=== PATIENT | male | born 1960 | race Caucasian/White ===

== ENCOUNTER 2016-06-05 | Outpatient (CLI) | payer OTHER | END 2016-06-05 13:19 | disposition critical access hospital (66) | CPT/HCPCS: A0425; A0429 ==

== ENCOUNTER 2016-06-05 13:36 | Emergency (ER) | payer OTHER | END 2016-06-05 14:45 | disposition home or self-care (01) | DX: R42 Dizziness and giddiness (principal); F17.200 Nicotine dependence, unspecified, uncomplicated ==

== ENCOUNTER 2016-07-16 14:31 | Emergency (ER) | payer OTHER ==
--- NOTE | 2016-07-16 15:32 | ED Physician Documentation ---
PD HPI MALE - Stated complaint Stated Complaint: BACK PX - Chief complaint Chief Complaint: Back Pain - History obtained from History obtained from: Patient - History of Present Illness Timing - onset: How many weeks ago (1-2) Timing - duration: Weeks Timing - details: Gradual onset, Still present (worse today), Waxing and waning Associated symptoms: Abdominal pain, Back pain (right lateral lumbar level and to right lower abd/inguinal area.). No: Dysuria, Urinary frequency, Hematuria, Discharge, Genital sore / lesion, Scrotal swelling Similar symptoms before: Has not had sx before Recently seen: Not recently seen Review of Systems Ten Systems: 10 systems reviewed and negative Constitutional: denies: Fever, Chills Nose: denies: Rhinorrhea / runny nose, Congestion Throat: denies: Sore throat Respiratory: denies: Dyspnea, Cough GI: reports: Abdominal Pain. denies: Abdominal Swelling, Nausea, Diarrhea : denies: Dysuria, Frequency, Hematuria, Discharge Skin: denies: Rash, Lesions Neurologic: denies: Focal weakness, Numbness PD PAST MEDICAL HISTORY - Past Surgical History Past Surgical History: Yes HEENT: Tonsil/Adenoidectomy - Present Medications Home Medications: Ambulatory Orders Medication Instructions Recorded Confirmed Aspirin 1 - 2 tab QID PRN 06/05/16 06/05/16 Docusate Sodium 100 mg PO DAILY #30 capsule 07/16/16 Naproxen 375 mg PO BID #20 tablet 07/16/16 Tramadol HCl 50 mg PO Q6H PRN #30 tablet 07/16/16 - Allergies Allergies/Adverse Reactions: Allergies Allergy/AdvReac Type Severity Reaction Status Date / Time No Known Drug Allergies Allergy Verified 06/05/16 13:40 - Social History Does the pt smoke?: Yes Smoking Status: Current every day smoker Does the pt drink ETOH?: Yes PD ED PE NORMAL - Vitals Vital signs reviewed: Yes - General General: Alert and oriented X 3, Well developed/nourished - HEENT HEENT: PERRL (nonicteric), Ears normal, Pharynx benign - Neck Neck: Supple, no meningeal sign, No adenopathy - Cardiac Cardiac: RRR, No murmur - Respiratory Respiratory: Clear bilaterally - Abdomen Abdomen: Normal bowel sounds, Non distended, No organomegaly, Other (tender right side abdomen and laterally. No rash nor sores. skin is not sensitive to touch. there is soft tissue and deeper palpation tenderness lateral paralumbar/ lateral musculature on right. ) - Male Male : Other (no scrotal tenderness nor mass. No inguinal hernia noted. ) - Rectal Rectal: Deferred - Back Back: No CVA TTP Results - Vitals Vitals: Vital Signs - 24 hr 07/16/16 07/16/16 07/16/16 14:33 16:57 18:43 Temperature 37.1 C 36.7 C Heart Rate 75 58 L 74 Respiratory 18 14 12 Rate Blood Pressure 133/85 H 114/77 121/68 O2 Saturation 98 98 96 Oxygen O2 Source Room air - Labs Labs: Laboratory Tests 07/16/16 07/16/16 07/16/16 15:50 16:00 16:00 WBC 7.5 RBC 5.23 Hgb 17.0 Hct 49.6 MCV 94.9 H MCH 32.5 H MCHC 34.3 RDW 12.6 Plt Count 249 MPV 8.0 Neut # 4.2 Lymph # 2.5 [place] # 0.7 Eos # 0.1 Baso # 0.1 Absolute Nucleated RBC 0.01 Nucleated RBCs 0.1 Sodium 140 Potassium 4.2 Chloride 106 Carbon Dioxide 27 Anion Gap 7.0 BUN 14 Creatinine 0.7 Estimated GFR (MDRD) 118 Glucose 93 Calcium 9.3 Total Bilirubin 0.6 AST 18 ALT 26 Alkaline Phosphatase 57 Total Protein 7.2 Albumin 4.3 Globulin 2.9 Albumin/Globulin Ratio 1.5 Lipase 24 Urine Color LT. YELLOW Urine Clarity CLEAR Urine pH 7.0 Ur Specific [place] <=1.005 Urine Protein NEGATIVE Urine Glucose (UA) NEGATIVE Urine Ketones NEGATIVE Urine Occult Blood TRACE-LYSE Urine Nitrite NEGATIVE Urine Bilirubin NEGATIVE Urine Urobilinogen 0.2 (NORMAL) Ur Leukocyte Esterase NEGATIVE Ur Microscopic Review NOT INDICATED Urine Culture Comments NOT INDICATED - Rads (name of study) abd CT Radiology: Prelim report reviewed (no obvious cause for the pain. Nodules noted in lower lungs with recommendation for 3 month repeat imaging.) PD MEDICAL DECISION MAKING - ED course Complexity details: reviewed results, re-evaluated patient (he wants to have non -narcoitc approach to meds. ), considered differential (has positional coponent to pain, presuming might be musculoskeletal. Will get CT to evaluate for stones , divertic, abscess, etc. ), d/w patient Departure - Departure Disposition: 01 Home, Self Care Clinical Impression: Right lateral abdominal pain Condition: Stable Record reviewed to determine appropriate education?: Yes Instructions: ED Abdominal Pain Unkn Cause Prescriptions: Docusate Sodium 100 mg PO DAILY #30 capsule Naproxen 375 mg PO BID #20 tablet Tramadol HCl 50 mg PO Q6H PRN #30 tablet PRN Reason: Pain Comments: Drink lots of fluids. Daily stool softener to keep regular. Naproxen twice daily for pain and add tramadol 4 times daily as needed. Follow up PMD end of the week, call for an appt. Not clear the cause of the pain at this time. There are some small nodules in lower lung, per Radiologist, with recommendation to have follow up scan in 3 months to see if any changes. Discharge Date/Time: 07/16/16 18:43
[2016-07-16] MEDS ORDERED: ACETAMINOPHEN 1,000 MG/100 ML 100 ML IV STA (15:56)
[2016-07-16] MEDS ORDERED: KETOROLAC 60 MG/2 ML VIAL IVP STA (15:56)
[2016-07-16] MEDS ORDERED: KETOROLAC 30 MG/ML VIAL ONE (16:09)
[2016-07-16] MEDS ORDERED: ACETAMINOPHEN 1,000 MG/100 ML 100 ML IV ONE (16:09)
[2016-07-16 16:16] LABS: BILIRUBIN,URINE NEGATIVE (NEGATIVE)
[2016-07-16 16:17] LABS: UA CHARGE (STRIP ONLY) YES; UR CULTURE IF IND NOT INDICATED
[2016-07-16 16:18] LABS: BASOPHILS # (AUTO) 0.1 10^3/uL (0.0-0.1); EOSINOPHILS # (AUTO) 0.1 10^3/uL (0.0-0.7); EOSINOPHILS % (AUTO) 1.3 %; HCT - HEMATOCRIT 49.6 % (42.0-52.0); LYMPHOCYTES # (AUTO) 2.5 10^3/uL (1.5-3.5); LYMPHOCYTES % (AUTO) 33.6 %; MEAN CORPUSCULAR HEMOGLOBIN 32.5 pg (27.0-31.0); MEAN CORPUSCULAR HGB CONC 34.3 g/dL (32.0-36.0); MEAN CORPUSCULAR VOLUME 94.9 fL (80.0-94.0); MONOCYTES # (AUTO) 0.7 10^3/uL (0.0-1.0); MONOCYTES % (AUTO) 8.8 %; NEUTROPHILS # (AUTO) 4.2 10^3/uL (1.5-6.6); NEUTROPHILS % (AUTO) 55.3 %; NUCLEATED RED BLOOD CELLS AUTO 0.1 /100WBC; RED BLOOD COUNT 5.23 10^6/uL (4.70-6.10); RED CELL DISTRIBUTION WIDTH 12.6 % (12.0-15.0); UNCORRECTED WHITE BLOOD COUNT 7.5 x10^3/uL; WHITE BLOOD COUNT 7.5 x10^3/uL (4.8-10.8)
[2016-07-16 16:25] LABS: ALBUMIN/GLOBULIN RATIO 1.5 (1.0-2.2); BILIRUBIN,TOTAL 0.6 mg/dL (0.2-1.0); CALCIUM 9.3 mg/dL (8.5-10.3); CREATININE 0.7 mg/dL (0.6-1.2); POTASSIUM 4.2 mmol/L (3.5-5.0); TOTAL PROTEIN 7.2 g/dL (6.7-8.2)
--- NOTE | 2016-07-16 17:09 | CT Preliminary Report ---
Exam: CT KUB IMPRESSION: 1. No urinary tract stones or obstruction. 2. Normal appendix. 3. No acute findings. 4. Multiple scattered pulmonary nodules in the lung bases, the largest measures 8 mm. If there is low risk for malignancy, recommend a 6 month follow-up chest CT. If there is high risk for malignancy, r ecommend a three-month follow-up chest CT as per [place] Society criteria. [facility] SITE ID: [id number]
--- NOTE | 2016-07-16 17:12 | CT Report ---
EXAM: CT ABDOMEN AND PELVIS (CT KUB) EXAM DATE: 07/16/2016 04:48 PM. CLINICAL HISTORY: Right lower abdominal/flank pain. COMPARISONS: None. TECHNIQUE: Routine axial helical CT imaging was performed through the abdomen and pelvis without IV c ontrast. Reconstructions: Coronal and sagittal. In accordance with CT protocol optimization, one or more of the following dose reduction techniques w ere utilized for this exam: automated exposure control, adjustment of mA and/or KV based on patient s ize, or use of iterative reconstructive technique. FINDINGS: Lung Bases: Multiple scattered pulmonary nodules are seen in the right lower lobe, one of the largest is abutting the right major fissure anteriorly and measures 8 mm. Pleural base right middle lobe pul monary nodule measuring 4 mm. 4 mm left lower lobe pulmonary nodule Right Kidney/Ureter: No stones, hydronephrosis, or hydroureter. No perinephric fat stranding. Small p artially exophytic low-density mass, suspect a small renal cyst, measures 7 mm seen anteriorly in the right kidney. Left Kidney/Ureter: No stones, hydronephrosis, or hydroureter. No perinephric fat stranding. Other Solid Organs: Noncontrast images of the solid organs are grossly unremarkable. Gallbladder/Bile Ducts: Unremarkable. Peritoneal Cavity: No free fluid, free air or bella adenopathy. Bowel is grossly unremarkable. Normal appendix. Pelvic Organs: No bladder stones or wall thickening. Noncontrast images of the visualized pelvic orga ns are unremarkable. Vasculature: Ectatic left common iliac artery measures 1.6 cm. Infrarenal abdominal aorta measures 2. 4 cm IMPRESSION: 1. No urinary tract stones or obstruction. 2. Normal appendix. 3. No acute findings. 4. Multiple scattered pulmonary nodules in the lung bases, the largest measures 8 mm. If there is low risk for malignancy, recommend a 6 month follow-up chest CT. If there is high risk for malignancy, r ecommend a three-month follow-up chest CT as per [place] Society criteria. [facility] Referring Provider Line: [phone] SITE ID: [id number]
[2016-07-16 18:44] VITALS: BP 121/68
== END 2016-07-16 18:43 | disposition home or self-care (01) ==
LOC: ED 14:31
DX: R10.31 Right lower quadrant pain (principal); M54.5 Low back pain; R91.8 Other nonspecific abnormal finding of lung field; F17.200 Nicotine dependence, unspecified, uncomplicated
CPT/HCPCS: 36415; 74176; 80053; 81003; 83690; 85025; 96374; 96375; 99283; 99284; J0131; 81001; 87086

== ENCOUNTER 2019-02-12 16:25 | Emergency (ER) | payer OTHER ==
[2019-02-12] MEDS ORDERED: diltiaZEM INJ 5 MG/ML VIAL IVP STA (16:51)
--- NOTE | 2019-02-12 16:52 | ED Physician Documentation ---
PD HPI CHEST PAIN - Stated complaint Stated Complaint: DIZZY/FAINT - Chief complaint Chief Complaint: Cardiac - History obtained from History obtained from: Patient - History of Present Illness Timing - onset: Other (58-year-old gentleman with history of remote paroxysmal atrial fibrillation developed weakness and presyncope while mowing the lawn about an hour ago. He took his blood pressure and his heart rate was about 170 he denies chest pain or pedal edema or calf pain. No significant shortness of breath.) Review of Systems Ten Systems: 10 systems reviewed and negative Constitutional: denies: Fever, Chills, Fatigue Cardiac: denies: Chest pain / pressure, Palpitations, Pedal edema, Calf pain Respiratory: denies: Dyspnea, Cough PD PAST MEDICAL HISTORY - Past Surgical History Past Surgical History: Yes HEENT: Tonsil/Adenoidectomy - Present Medications Home Medications: Ambulatory Orders Medication Instructions Recorded Confirmed Aspirin 1 - 2 tab QID PRN 06/05/16 06/05/16 Docusate Sodium 100 mg PO DAILY #30 capsule 07/16/16 Naproxen 375 mg PO BID #20 tablet 07/16/16 Tramadol HCl 50 mg PO Q6H PRN #30 tablet 07/16/16 - Allergies Allergies/Adverse Reactions: Allergies Allergy/AdvReac Type Severity Reaction Status Date / Time No Known Drug Allergies Allergy Verified 06/05/16 13:40 - Social History Does the pt smoke?: Yes Smoking Status: Current every day smoker Does the pt drink ETOH?: Yes PD ED PE NORMAL - Vitals Vital signs reviewed: Yes (Extreme tachycardia) - General General: Alert and oriented X 3, No acute distress - HEENT HEENT: PERRL, EOMI - Neck Neck: Supple, no meningeal sign, No bony TTP - Cardiac Cardiac: Other (Rapid and quite regular without murmur) - Respiratory Respiratory: No respiratory distress, Clear bilaterally - Abdomen Abdomen: Non tender - Extremities Extremities: No edema, No calf tenderness / cord - Neuro Neuro: Alert and oriented X 3, Normal speech Results - Vitals Vitals: Vital Signs - 24 hr 02/12/19 02/12/19 02/12/19 16:34 17:06 17:27 Temperature 36.5 C Heart Rate 172 H 105 H 76 Respiratory 18 15 19 Rate Blood Pressure 132/81 H 134/85 H 109/87 H O2 Saturation 98 95 90 L 02/12/19 02/12/19 17:29 17:30 Temperature Heart Rate 78 76 Respiratory 18 14 Rate Blood Pressure 110/81 H 108/86 H O2 Saturation 94 90 L Oxygen O2 Source Room air - EKG (time done) 1642 Rate: Rate (enter#) (172) Rhythm: SVT Intervals: Other (LAFB) Computer interpretation: Agree with computer 1731 Rate: Rate (enter#) (71) Rhythm: NSR [place]: Normal Intervals: Other (LAFB) QRS: Normal Ischemia: Non specific changes. No: ST elevation c/w ischemia, ST depression Computer interpretation: Agree with computer - Labs Labs: Laboratory Tests 02/12/19 02/12/19 02/12/19 17:00 17:00 17:00 WBC 12.8 H RBC 5.25 Hgb 17.5 Hct 50.4 MCV 96.0 H MCH 33.3 H MCHC 34.7 RDW 12.5 Plt Count 227 MPV 10.5 Neut # (Auto) 8.0 H Lymph # (Auto) 3.4 [place] # (Auto) 1.2 H Eos # (Auto) 0.1 Baso # (Auto) 0.1 Absolute Nucleated RBC 0.00 Nucleated RBC % 0.0 Sodium 142 Potassium 4.0 Chloride 101 Carbon Dioxide 26 Anion Gap 15.0 H BUN 12 Creatinine 0.8 Estimated GFR (MDRD) 100 Glucose 135 H Calcium 9.8 Total Bilirubin 0.7 AST 30 ALT 36 Alkaline Phosphatase 64 Troponin I High Sens 6.2 Total Protein 8.1 Albumin 4.5 Globulin 3.6 Albumin/Globulin Ratio 1.3 Lipase 31 TSH 02/12/19 17:00 WBC RBC Hgb Hct MCV MCH MCHC RDW Plt Count MPV Neut # (Auto) Lymph # (Auto) [place] # (Auto) Eos # (Auto) Baso # (Auto) Absolute Nucleated RBC Nucleated RBC % Sodium Potassium Chloride Carbon Dioxide Anion Gap BUN Creatinine Estimated GFR (MDRD) Glucose Calcium Total Bilirubin AST ALT Alkaline Phosphatase Troponin I High Sens Total Protein Albumin Globulin Albumin/Globulin Ratio Lipase TSH 1.59 PD MEDICAL DECISION MAKING - ED course ED course: 58-year-old gentleman presents with a symptomatic supraventricular tachycardia. Vagal maneuvers were unsuccessful on arrival and this was followed by 10 mg of diltiazem IV push. He had no substantive change with this and received 6 mg of adenosine IV push. He briefly slowed with this, I wondered if he might be in flutter based on that, and then right right back up to about 170 bpm. This was followed by 5 mg of Lopressor IV. After second dose of Lopressor he converted to sinus rhythm. He was asymptomatic at that juncture. Departure - Departure Disposition: 01 Home, Self Care Clinical Impression: SVT (supraventricular tachycardia) Condition: Good Instructions: ED Tachycardia Pat PSVT Comments: Follow-up with your physician, next available appointment. Return for new or worsening symptoms, your physician may want to order an echocardiogram, it looks like it has been about 7 years since you have had one. Take a baby aspirin a day until advised otherwise by your physician. Try to quit smoking.
[2019-02-12] MEDS ORDERED: ADENOSINE 6 MG/2 ML VIAL IVP STA (16:56)
[2019-02-12] MEDS ORDERED: diltiaZEM INJ 5 MG/ML VIAL ONE (17:01)
[2019-02-12] MEDS ORDERED: METOPROLOL 5 MG/5 ML VIAL IVP STA ×2 (17:02→17:10)
[2019-02-12] MEDS ORDERED: ADENOSINE 6 MG/2 ML VIAL IVP ONE (17:08)
[2019-02-12] MEDS ORDERED: METOPROLOL 5 MG/5 ML VIAL IVP ONE (17:14)
[2019-02-12 17:21] LABS: BASOPHILS # (AUTO) 0.1 10^3/uL (0.0-0.1); BASOPHILS % (AUTO) 0.5 %; EOSINOPHILS # (AUTO) 0.1 10^3/uL (0.0-0.7); EOSINOPHILS % (AUTO) 0.7 %; HGB - HEMOGLOBIN 17.5 g/dL (14.0-18.0); LYMPHOCYTES # (AUTO) 3.4 10^3/uL (1.5-3.5); LYMPHOCYTES % (AUTO) 26.5 %; MEAN CORPUSCULAR HEMOGLOBIN 33.3 pg (27.0-31.0); MEAN CORPUSCULAR HGB CONC 34.7 g/dL (32.0-36.0); MEAN PLATELET VOLUME 10.5 fL (7.4-11.4); MONOCYTES # (AUTO) 1.2 10^3/uL (0.0-1.0); MONOCYTES % (AUTO) 9.1 %; NEUTROPHILS % (AUTO) 62.6 %; PLT - PLATELET COUNT 227 10^3/uL (130-450); RED BLOOD COUNT 5.25 10^6/uL (4.70-6.10); RED CELL DISTRIBUTION WIDTH 12.5 % (12.0-15.0); WHITE BLOOD COUNT 12.8 x10^3/uL (4.8-10.8)
[2019-02-12 17:34] LABS: ALBUMIN 4.5 g/dL (3.2-5.5); ALBUMIN/GLOBULIN RATIO 1.3 (1.0-2.2); BILIRUBIN,TOTAL 0.7 mg/dL (0.2-1.0); CALCIUM 9.8 mg/dL (8.5-10.3); CREATININE 0.8 mg/dL (0.6-1.2); TOTAL PROTEIN 8.1 g/dL (6.7-8.2)
[2019-02-12 18:40] VITALS: BP 104/85
== END 2019-02-12 18:56 | disposition home or self-care (01) ==
LOC: ED 16:25
DX: I47.1 Supraventricular tachycardia (principal); I44.4 Left anterior fascicular block; Z79.82 Long term (current) use of aspirin; F17.200 Nicotine dependence, unspecified, uncomplicated
CPT/HCPCS: 36415; 83690; 84484; 93005; 96374; 96375; 99283; J0153; 80053; 84443; 85025

== ENCOUNTER 2020-10-21 03:14 | Emergency (ER) | payer OTHER ==
[2020-10-21 04:33] LABS: BASOPHILS % (AUTO) 0.4 %; EOSINOPHILS % (AUTO) 0.4 %; HCT - HEMATOCRIT 43.9 % (42.0-52.0); HGB - HEMOGLOBIN 15.5 g/dL (14.0-18.0); LYMPHOCYTES # (AUTO) 1.4 10^3/uL (1.5-3.5); LYMPHOCYTES % (AUTO) 15.7 %; MEAN CORPUSCULAR HEMOGLOBIN 33.6 pg (27.0-31.0); MEAN CORPUSCULAR HGB CONC 35.3 g/dL (32.0-36.0); MEAN CORPUSCULAR VOLUME 95.2 fL (80.0-94.0); MONOCYTES # (AUTO) 0.8 10^3/uL (0.0-1.0); MONOCYTES % (AUTO) 9.3 %; NEUTROPHILS # (AUTO) 6.6 10^3/uL (1.5-6.6); PLT - PLATELET COUNT 248 10^3/uL (130-450); RED BLOOD COUNT 4.61 10^6/uL (4.70-6.10); RED CELL DISTRIBUTION WIDTH 11.9 % (12.0-15.0); WHITE BLOOD COUNT 8.9 x10^3/uL (4.8-10.8)
[2020-10-21 04:47] LABS: ALBUMIN/GLOBULIN RATIO 1.4 (1.0-2.2); BILIRUBIN,TOTAL 0.7 mg/dL (0.2-1.0); CALCIUM 8.9 mg/dL (8.5-10.3); CREATININE 0.7 mg/dL (0.6-1.2); TOTAL PROTEIN 6.8 g/dL (6.7-8.2)
--- NOTE | 2020-10-21 05:31 | ED Physician Documentation ---
History of Present Illness - Stated complaint Stated Complaint: COUGHING BLOOD - Chief complaint Chief Complaint: General - History obtained from History obtained from: Patient - Additonal information Additional information: 60-year-old man with past medical history of high blood pressure current smoker, presents with hemoptysis that started last night. He has had a couple of episodes of small-volume hemoptysis. He has a chronic cough that is nonworsening. Denies fever, chest pain, shortness of breath, pleurisy, leg swelling or other symptoms. Review of Systems Ten Systems: 10 systems reviewed and negative Constitutional: denies: Fever, Chills Cardiac: denies: Chest pain / pressure Respiratory: reports: Cough, Hemoptysis. denies: Dyspnea GI: denies: Abdominal Pain, Nausea PD PAST MEDICAL HISTORY - Past Medical History Past Medical History: Yes Cardiovascular: Hypertension, Atrial flutter Respiratory: None Neuro: None Endocrine/Autoimmune: None GI: None : None HEENT: None Psych: None Musculoskeletal: None Derm: None - Past Surgical History Past Surgical History: Yes HEENT: Tonsil/Adenoidectomy - Present Medications Home Medications: Ambulatory Orders Medication Instructions Recorded Confirmed Aspirin 1 - 2 tab QID PRN 06/05/16 06/05/16 Docusate Sodium 100 mg PO DAILY #30 capsule 07/16/16 Naproxen 375 mg PO BID #20 tablet 07/16/16 Tramadol HCl 50 mg PO Q6H PRN #30 tablet 07/16/16 - Allergies Allergies/Adverse Reactions: Allergies Allergy/AdvReac Type Severity Reaction Status Date / Time No Known Drug Allergies Allergy Verified 10/21/20 03:27 - Social History Does the pt smoke?: Yes Smoking Status: Current every day smoker Does the pt drink ETOH?: Yes Does the pt have substance abuse?: No - Immunizations Immunizations are current?: No - POLST Patient has POLST: No PD ED PE NORMAL - Vitals Vital signs reviewed: Yes - General General: Alert and oriented X 3, No acute distress, Well developed/nourished - HEENT HEENT: Atraumatic, PERRL, EOMI - Neck Neck: Supple, no meningeal sign - Cardiac Cardiac: RRR - Respiratory Respiratory: No respiratory distress, Clear bilaterally - Abdomen Abdomen: Non tender, Non distended - Extremities Extremities: No deformity, No edema - Neuro Neuro: Alert and oriented X 3 - Psych Psych: Normal mood, Normal affect Results - Vitals Vitals: Vital Signs - 24 hr 10/21/20 10/21/20 03:25 04:09 Temperature 36.7 C Heart Rate 80 63 Respiratory 16 16 Rate Blood Pressure 143/75 H 118/82 H O2 Saturation 99 96 Oxygen O2 Source Room air - Labs Labs: Laboratory Tests 10/21/20 10/21/20 10/21/20 04:30 04:30 04:30 WBC 8.9 RBC 4.61 L Hgb 15.5 Hct 43.9 MCV 95.2 H MCH 33.6 H MCHC 35.3 RDW 11.9 L Plt Count 248 MPV 9.0 Neut # (Auto) 6.6 Lymph # (Auto) 1.[address] [place] # (Auto) 0.8 Eos # (Auto) 0.0 Baso # (Auto) 0.0 Absolute Nucleated RBC 0.00 Nucleated RBC % 0.0 D-Dimer 247.1 Sodium 138 Potassium 4.0 Chloride 105 Carbon Dioxide 24 Anion Gap 9.0 BUN 15 Creatinine 0.7 Estimated GFR (MDRD) 116 Glucose 114 H Calcium 8.9 Total Bilirubin 0.7 AST 15 ALT 21 Alkaline Phosphatase 50 Troponin I High Sens Total Protein 6.8 Albumin 4.0 Globulin 2.8 Albumin/Globulin Ratio 1.4 Lipase 28 10/21/20 04:30 WBC RBC Hgb Hct MCV MCH MCHC RDW Plt Count MPV Neut # (Auto) Lymph # (Auto) [place] # (Auto) Eos # (Auto) Baso # (Auto) Absolute Nucleated RBC Nucleated RBC % D-Dimer Sodium Potassium Chloride Carbon Dioxide Anion Gap BUN Creatinine Estimated GFR (MDRD) Glucose Calcium Total Bilirubin AST ALT Alkaline Phosphatase Troponin I High Sens 3.6 Total Protein Albumin Globulin Albumin/Globulin Ratio Lipase PD MEDICAL DECISION MAKING - ED course ED course: 60-year-old man presents with hemoptysis with pulmonary nodule that is 1.3 cm in the right upper lobe, not present on prior imaging that we have. I discussed with him that it may be cancerous and that he should have it evaluated in conjunction with [facility]. He may need referral to oncology. Return precautions given. Departure - Departure Disposition: 01 Home, Self Care Clinical Impression: Hemoptysis, Pulmonary nodule Condition: Stable Instructions: ED Hemoptysis Comments: You were seen in the emergency department for coughing up blood. Your chest x- ray showed a large pulmonary nodule that is 1.3 cm in size in the right upper lobe. The previous imaging we have does not show this. You need to be evaluat ed immediately by [facility] to make sure that this is not cancerous. You may need referral to an oncologist to biopsy the nodule. Please return to the emergency department if you have any new or worsening symptoms or other concerns.
[2020-10-21 05:34] VITALS: BP 122/84
--- NOTE | 2020-10-21 08:34 | XRAY Report ---
PROCEDURE: Chest 1 View X-Ray INDICATIONS: Chest Pain TECHNIQUE: One view of the chest was acquired. COMPARISON: None. FINDINGS: Surgical changes and devices: None. Lungs and pleura: No pleural effusions or pneumothorax. Lungs are clear except for a possible sligh t alveolar infiltration left lower lobe.. Mediastinum: Mediastinal contours appear normal. Heart size is normal. Bones and chest wall: No suspicious bony lesions. Overlying soft tissues appear unremarkable. IMPRESSION: Minimal alveolar infiltration left lower lobe. This is a questionable finding. The initial interpreta tion had raises concern for possible right upper lobe focal radiodensity but this appears to represen t the anterior tip of the first costochondral junction. Follow-up two-view chest in the radiology Dep artment is recommended to more accurately assess this area. Reviewed by: Zion Shanks MD on 10/21/2020 8:32 AM PDT Approved by: Zion Shanks MD on 10/21/2020 8:32 AM PDT Station ID: [id number]
== END 2020-10-21 05:45 | disposition home or self-care (01) ==
LOC: ED 03:14
DX: R04.2 Hemoptysis (principal); R91.1 Solitary pulmonary nodule; I10 Essential (primary) hypertension; F17.200 Nicotine dependence, unspecified, uncomplicated
CPT/HCPCS: 36415; 80053; 83690; 84484; 85025; 85379; 93005; 99284; 99285

== ENCOUNTER 2020-11-12 20:12 | Emergency (ER) | payer OTHER ==
--- NOTE | 2020-11-12 20:42 | XRAY Report ---
PROCEDURE: Chest 1 View X-Ray INDICATIONS: Chest pain TECHNIQUE: One view of the chest was acquired. COMPARISON: Chest x-ray dated 05/23/2020 FINDINGS: Surgical changes and devices: None. Lungs and pleura: No pleural effusions or pneumothorax. Lungs are clear. Mediastinum: Mediastinal contours appear normal. Heart size is normal. Bones and chest wall: No suspicious bony lesions. Overlying soft tissues appear unremarkable. IMPRESSION: No acute process. Reviewed by: Ta Doyle MD on 11/12/2020 8:40 PM PDT Approved by: Ta Doyle MD on 11/12/2020 8:40 PM PDT Station ID: [id number]
[2020-11-12 20:43] LABS: BASOPHILS % (AUTO) 0.4 %; EOSINOPHILS # (AUTO) 0.1 10^3/uL (0.0-0.7); EOSINOPHILS % (AUTO) 1.1 %; HCT - HEMATOCRIT 49.4 % (42.0-52.0); HGB - HEMOGLOBIN 17.1 g/dL (14.0-18.0); LYMPHOCYTES # (AUTO) 3.4 10^3/uL (1.5-3.5); LYMPHOCYTES % (AUTO) 41.5 %; MEAN CORPUSCULAR HEMOGLOBIN 33.5 pg (27.0-31.0); MEAN CORPUSCULAR HGB CONC 34.6 g/dL (32.0-36.0); MEAN CORPUSCULAR VOLUME 96.7 fL (80.0-94.0); MEAN PLATELET VOLUME 9.3 fL (7.4-11.4); MONOCYTES # (AUTO) 0.7 10^3/uL (0.0-1.0); MONOCYTES % (AUTO) 8.2 %; NEUTROPHILS % (AUTO) 48.7 %; PLT - PLATELET COUNT 231 10^3/uL (130-450); RED BLOOD COUNT 5.11 10^6/uL (4.70-6.10); RED CELL DISTRIBUTION WIDTH 12.5 % (12.0-15.0); WHITE BLOOD COUNT 8.1 x10^3/uL (4.8-10.8)
[2020-11-12 21:05] LABS: ALBUMIN 4.3 g/dL (3.2-5.5); ALBUMIN/GLOBULIN RATIO 1.4 (1.0-2.2); BILIRUBIN,TOTAL 0.8 mg/dL (0.2-1.0); CALCIUM 9.5 mg/dL (8.5-10.3); CREATININE 0.9 mg/dL (0.6-1.2); TOTAL PROTEIN 7.4 g/dL (6.7-8.2)
--- NOTE | 2020-11-12 21:52 | ED Physician Documentation ---
History of Present Illness - Stated complaint Stated Complaint: IRREGULAR HR/HIGH BP - Chief complaint Chief Complaint: Cardiac - History obtained from History obtained from: Patient, Family - History of Present Illness Timing: Prior to arrival (1942), Today - Additonal information Additional information: 60-year-old male who has had episodic intermittent rapid irregular heart rate was in his home this afternoon when he experienced some pain into his neck and felt his pulse in his neck was rapid he put on his blood pressure cuff he found his blood pressure was markedly elevated and his heart rate was 160. He felt lightheaded dizzy and felt he had some pressure in his chest. He has had similar episode about 3 weeks ago and he has follow-up with scheduled cardiology in about 10 days. The patient has changed his health practices in the past 6 weeks. He has reduced his nicotine consumption he is stopped putting salt on his food and he has reduced his caffeine intake. He is an avid espresso drinker and last had espresso in the afternoon. He has cut back to half a pack of cigarettes per day and he indicates that today he had about 5 slices of pizza which was in overindulgence for for his recent change. Patient denies use of alcohol or potential for alcohol withdrawal. Review of Systems Constitutional: denies: Fever Eyes: denies: Decreased vision Ears: denies: Ear pain Nose: denies: Congestion Throat: denies: Sore throat Cardiac: reports: Chest pain / pressure, Palpitations. denies: Pedal edema, Calf pain Respiratory: denies: Dyspnea, Cough, Wheezing GI: denies: Abdominal Pain, Nausea, Vomiting, Constipation, Diarrhea : denies: Dysuria, Frequency Skin: denies: Rash Musculoskeletal: denies: Neck pain, Back pain, Extremity pain Neurologic: denies: Generalized weakness, Focal weakness, Numbness PD PAST MEDICAL HISTORY - Past Medical History Past Medical History: Yes Cardiovascular: Hypertension, Atrial flutter Respiratory: None Neuro: None Endocrine/Autoimmune: None GI: None : None HEENT: None Psych: None Musculoskeletal: None Derm: None - Past Surgical History Past Surgical History: Yes HEENT: Tonsil/Adenoidectomy - Present Medications Home Medications: Ambulatory Orders Medication Instructions Recorded Confirmed Aspirin 1 - 2 tab QID PRN 06/05/16 06/05/16 Tramadol HCl 50 mg PO Q6H PRN #30 tablet 07/16/16 11/12/20 Diltiazem HCl [Diltiazem 12Hr ER] 120 mg PO DAILY 11/12/20 11/12/20 - Allergies Allergies/Adverse Reactions: Allergies Allergy/AdvReac Type Severity Reaction Status Date / Time No Known Drug Allergies Allergy Verified 11/12/20 20:15 - Social History Does the pt smoke?: Yes Smoking Status: Current every day smoker Does the pt drink ETOH?: Yes Does the pt have substance abuse?: No - Immunizations Immunizations are current?: No - POLST Patient has POLST: No PD ED PE NORMAL - Vitals Vital signs reviewed: Yes (Tachycardic and hypertensive) - General General: Alert and oriented X 3, No acute distress, Well developed/nourished - HEENT HEENT: Atraumatic, PERRL, EOMI - Neck Neck: Supple, no meningeal sign, No bony TTP - Cardiac Cardiac: RRR, No murmur - Respiratory Respiratory: No respiratory distress, Clear bilaterally - Abdomen Abdomen: Normal bowel sounds, Soft, Non tender, Non distended, No organomegaly - Back Back: No CVA TTP, No spinal TTP - Derm Derm: Normal color, Warm and dry, No rash - Extremities Extremities: No deformity, No edema - Neuro Neuro: Alert and oriented X 3, preflight inspector 2-12 intact, No motor deficit, No sensory deficit, Normal speech Eye Opening: Spontaneous Motor: Obeys Commands Verbal: Oriented GCS Score: 15 - Psych Psych: Normal mood, Normal affect Results - Vitals Vitals: Vital Signs - 24 hr 11/12/20 11/12/20 11/12/20 20:15 20:52 21:10 Temperature 36.9 C Heart Rate 102 H 90 81 Respiratory 18 18 16 Rate Blood Pressure 159/97 H 160/98 H 120/79 O2 Saturation 100 98 95 11/12/20 11/12/20 11/12/20 21:30 22:00 22:30 Temperature Heart Rate 85 82 99 Respiratory 17 16 15 Rate Blood Pressure 110/75 107/76 112/68 O2 Saturation 96 98 96 11/12/20 11/12/20 11/13/20 23:00 23:30 00:00 Temperature 36.9 C Heart Rate 113 H 100 67 Respiratory 3 L 13 15 Rate Blood Pressure 121/75 114/78 112/70 O2 Saturation 96 96 95 11/13/20 11/13/20 11/13/20 01:09 01:38 02:00 Temperature 36.8 C Heart Rate 85 59 L 58 L Respiratory 14 13 13 Rate Blood Pressure 113/65 113/77 111/86 H O2 Saturation 96 95 98 11/13/20 02:14 Temperature Heart Rate 70 Respiratory 12 Rate Blood Pressure 111/86 H O2 Saturation 98 Oxygen O2 Source Room air - EKG (time done) 2017 Rate: Rate (enter#) (99) Rhythm: LAE [place]: Anterior hemiblock Ischemia: ST depression (minimal in lateral leads.) Compare to prior EKG: Unchanged from prior EKG, Changed from prior EKG, Old EKG unavailable Computer interpretation: Agree with computer 2244 Rate: Rate (enter#) (113) Rhythm: Other (sinus rhythm with paired premature atrial contractions. ) [place]: LAD Computer interpretation: Disagree with computer (The computer calls this afib and it is clearly sinus with PAC's and not PVC's) 0100 Rate: Rate (enter#) (101) Rhythm: Other (Sinus with paired PAC's ) [place]: LAD, Anterior hemiblock Compare to prior EKG: Changed from prior EKG (SPT late yesterday evening the rate is reduced. ) Computer interpretation: Disagree with computer (not afib sinus with paired PAC's) - Labs Labs: Laboratory Tests 11/12/20 11/12/20 11/12/20 20:38 20:38 20:38 WBC 8.1 RBC 5.11 Hgb 17.1 Hct 49.4 MCV 96.7 H MCH 33.5 H MCHC 34.6 RDW 12.5 Plt Count 231 MPV 9.3 Neut # (Auto) 4.0 Lymph # (Auto) 3.4 [place] # (Auto) 0.7 Eos # (Auto) 0.1 Baso # (Auto) 0.0 Absolute Nucleated RBC 0.00 Nucleated RBC % 0.0 Sodium 142 Potassium 4.0 Chloride 104 Carbon Dioxide 28 Anion Gap 10.0 BUN 12 Creatinine 0.9 Estimated GFR (MDRD) 87 L Glucose 137 H Calcium 9.5 Total Bilirubin 0.8 AST 22 ALT 36 Alkaline Phosphatase 65 Troponin I High Sens 3.2 Total Protein 7.4 Albumin 4.3 Globulin 3.1 Albumin/Globulin Ratio 1.4 Lipase 29 11/12/20 22:34 WBC RBC Hgb Hct MCV MCH MCHC RDW Plt Count MPV Neut # (Auto) Lymph # (Auto) [place] # (Auto) Eos # (Auto) Baso # (Auto) Absolute Nucleated RBC Nucleated RBC % Sodium Potassium Chloride Carbon Dioxide Anion Gap BUN Creatinine Estimated GFR (MDRD) Glucose Calcium Total Bilirubin AST ALT Alkaline Phosphatase Troponin I High Sens 4.5 Total Protein Albumin Globulin Albumin/Globulin Ratio Lipase - Rads (name of study) chest Radiology: Prelim report reviewed (Impression: No acute process.), EMP read indepedently, See rad report PD MEDICAL DECISION MAKING - ED course Complexity details: reviewed old records, reviewed results, re-evaluated patient, considered differential, d/w patient ED course: 60-year-old male presents with what sounds like an episode of SVT and at the time of my evaluation his heart rate is now down to 100 his blood pressure is normalized and he is relatively symptom-free. He has quite a bit of anxiety associated with the visit tonjovanna and a repeat chest x-ray done demonstrates no evidence of the previously seen nodule in the chest x-ray. The reports from the initial x-ray indicate that the over read question the initial finding. I was able to share this information with the patient to his relief.When I had a hard time explaining the patient's rhythm to him he became concerned and asked that I consult with the wire puller. Dr. Hicks was kind enough to consult with me and recommended we give the patient a second dose of diltiazem orally and continue this twice daily.The patient had already been given the second dose of diltiazem.He has follow-up with cardiology in 5 days time. He is instructed to return to the emergency department for uncontrolled rate. Departure - Departure Disposition: 01 Home, Self Care Clinical Impression: SVT (supraventricular tachycardia) Condition: Stable Instructions: ED Tachycardia Pat PSVT Follow-Up: CHUCK SUBRAMANIAN MD [Primary Care Provider] - Comments: Elissa we have discussed her case with Dr. Hicks at [facility]. He would like you to increase your dose of diltiazem to twice per day. You may continue to have some episodes of rapid heart rate and as long as you are tolerating them that is acceptable. If you develop any symptoms or this per sists for any length of time come to the emergency department. Discharge Date/Time: 11/13/20 02:25
[2020-11-12] MEDS ORDERED: diltiaZEM CD 120 MG CAPSULE PO STA (23:06)
[2020-11-13 02:14] VITALS: BP 111/86
== END 2020-11-13 02:25 | disposition home or self-care (01) ==
LOC: ED 20:12
DX: I47.1 Supraventricular tachycardia (principal); I49.1 Atrial premature depolarization; I44.4 Left anterior fascicular block; I10 Essential (primary) hypertension; F41.9 Anxiety disorder, unspecified; F17.210 Nicotine dependence, cigarettes, uncomplicated; Z79.82 Long term (current) use of aspirin
CPT/HCPCS: 36415; 71045; 80053; 83690; 84484; 85025; 93005; 99284; A9270

== ENCOUNTER 2020-11-16 23:39 | Outpatient (CLI) | payer OTHER | END 2020-11-16 23:40 | disposition short-term general hospital (02) | LOC: EMS 23:39 | DX: R00.0 Tachycardia, unspecified (principal) | CPT/HCPCS: A0425; A0427 ==

== ENCOUNTER 2020-11-19 20:25 | Emergency (ER) | payer OTHER ==
[2020-11-19 20:49] LABS: BASOPHILS % (AUTO) 0.4 %; EOSINOPHILS # (AUTO) 0.1 10^3/uL (0.0-0.7); EOSINOPHILS % (AUTO) 1.1 %; HCT - HEMATOCRIT 48.6 % (42.0-52.0); HGB - HEMOGLOBIN 17.1 g/dL (14.0-18.0); LYMPHOCYTES % (AUTO) 30.8 %; MEAN CORPUSCULAR HEMOGLOBIN 33.9 pg (27.0-31.0); MEAN CORPUSCULAR HGB CONC 35.2 g/dL (32.0-36.0); MEAN CORPUSCULAR VOLUME 96.2 fL (80.0-94.0); MEAN PLATELET VOLUME 10.3 fL (7.4-11.4); MONOCYTES # (AUTO) 0.9 10^3/uL (0.0-1.0); NEUTROPHILS # (AUTO) 5.6 10^3/uL (1.5-6.6); NEUTROPHILS % (AUTO) 58.4 %; PLT - PLATELET COUNT 225 10^3/uL (130-450); RED BLOOD COUNT 5.05 10^6/uL (4.70-6.10); RED CELL DISTRIBUTION WIDTH 12.3 % (12.0-15.0); WHITE BLOOD COUNT 9.6 x10^3/uL (4.8-10.8)
[2020-11-19 21:11] LABS: ALBUMIN 4.4 g/dL (3.2-5.5); ALBUMIN/GLOBULIN RATIO 1.3 (1.0-2.2); BILIRUBIN,TOTAL 0.5 mg/dL (0.2-1.0); CALCIUM 9.3 mg/dL (8.5-10.3); CREATININE 1.1 mg/dL (0.6-1.2); POTASSIUM 3.9 mmol/L (3.5-5.0); TOTAL PROTEIN 7.8 g/dL (6.7-8.2)
--- NOTE | 2020-11-19 21:34 | XRAY Report ---
PROCEDURE: Chest 1 View X-Ray INDICATIONS: Chest pain TECHNIQUE: One view of the chest was acquired. COMPARISON: 11/12/2020 FINDINGS: Surgical changes and devices: None. Lungs and pleura: No pleural effusions or pneumothorax. Mild bilateral bronchial wall thickening. Co arse interstitial markings, chronic.. Mediastinum: Mediastinal contours demonstrate increased central venous congestion. Stable prominence of central pulmonary arteries.. Heart size is normal. Bones and chest wall: No suspicious bony lesions. Overlying soft tissues appear unremarkable. IMPRESSION: 1. Central venous and mild interstitial congestion suggesting early CHF. Heart size remains normal. Reviewed by: Reyna Duron MD on 11/19/2020 9:33 PM PDT Approved by: Reyna Duron MD on 11/19/2020 9:33 PM PDT Station ID: [id number]
--- NOTE | 2020-11-19 21:37 | ED Physician Documentation ---
History of Present Illness - Stated complaint Stated Complaint: HIGH HR/DIZZY - Chief complaint Chief Complaint: Cardiac - History obtained from History obtained from: Patient, Family - History of Present Illness Timing: Today - Additonal information Additional information: 60-year-old male with a history of rapid heart rate intermittently has recently been into the emergency department with a rapid heart rate that converted and he has returned again this evening with similar symptoms. Last weekend he arrived with a rate in the 80s and a rhythm that look like paroxysmal atrial tachycardia. His dose of diltiazem last week was increased to twice per day and despite this the patient has had an episode yesterday about the same time as event today. Today he describes having dinner taking his diltiazem and approximately an hour later developing rapid heart rate. He did not develop pain in his neck chest pain or shortness of breath associated with this. He did clock his heart rate at [address] made his way to the emergency department. We were able to capture his rate at 140 on electrocardiogram. He subsequently converted spontaneously. Review of Systems Constitutional: denies: Fever Eyes: denies: Decreased vision Ears: denies: Ear pain Nose: denies: Congestion Throat: denies: Sore throat Cardiac: reports: Palpitations. denies: Chest pain / pressure Respiratory: denies: Dyspnea, Cough GI: denies: Nausea, Vomiting, Diarrhea : denies: Dysuria, Frequency Skin: denies: Rash Musculoskeletal: denies: Neck pain, Back pain, Extremity pain Neurologic: denies: Generalized weakness, Focal weakness, Numbness PD PAST MEDICAL HISTORY - Past Medical History Past Medical History: Yes Cardiovascular: Hypertension, Atrial flutter, Atrial fibrillation Respiratory: None Neuro: None Endocrine/Autoimmune: None GI: None : None HEENT: None Psych: None Musculoskeletal: None Derm: None - Past Surgical History Past Surgical History: Yes HEENT: Tonsil/Adenoidectomy - Present Medications Home Medications: Ambulatory Orders Medication Instructions Recorded Confirmed Aspirin 1 - 2 tab QID PRN 06/05/16 06/05/16 Tramadol HCl 50 mg PO Q6H PRN #30 tablet 07/16/16 11/12/20 Diltiazem HCl [Diltiazem 12Hr ER] 120 mg PO DAILY 11/12/20 11/12/20 Metoprolol Tartrate [Lopressor] 50 mg PO ONCE PRN #10 tablet 11/19/20 - Allergies Allergies/Adverse Reactions: Allergies Allergy/AdvReac Type Severity Reaction Status Date / Time No Known Drug Allergies Allergy Verified 11/19/20 20:28 - Social History Does the pt smoke?: Yes Smoking Status: Current every day smoker Does the pt drink ETOH?: Yes Does the pt have substance abuse?: No - Immunizations Immunizations are current?: No - POLST Patient has POLST: No PD ED PE NORMAL - Vitals Vital signs reviewed: Yes (hypertensive diastolic mild ) - General General: Alert and oriented X 3, No acute distress, Well developed/nourished - HEENT HEENT: Atraumatic, PERRL, EOMI - Neck Neck: Supple, no meningeal sign, No bony TTP - Cardiac Cardiac: RRR, No murmur - Respiratory Respiratory: No respiratory distress, Clear bilaterally - Abdomen Abdomen: Soft, Non tender - Back Back: No CVA TTP, No spinal TTP - Derm Derm: Normal color, Warm and dry, No rash - Extremities Extremities: No deformity, No edema - Neuro Neuro: Alert and oriented X 3, ice cream server 2-12 intact, No motor deficit, No sensory deficit, Normal speech Eye Opening: Spontaneous Motor: Obeys Commands Verbal: Oriented GCS Score: 15 - Psych Psych: Normal mood, Normal affect Results - Vitals Vitals: Vital Signs - 24 hr 11/19/20 11/19/20 11/19/20 20:28 20:30 22:30 Temperature 36.5 C Heart Rate 100 87 79 Respiratory 16 20 18 Rate Blood Pressure 116/88 H 111/75 100/67 O2 Saturation 98 95 98 Oxygen O2 Source Room air - Labs Labs: Laboratory Tests 11/19/20 11/19/20 11/19/20 20:38 20:45 20:45 WBC 9.6 RBC 5.05 Hgb 17.1 Hct 48.6 MCV 96.2 H MCH 33.9 H MCHC 35.2 RDW 12.3 Plt Count 225 MPV 10.3 Neut # (Auto) 5.6 Lymph # (Auto) 3.0 [place] # (Auto) 0.9 Eos # (Auto) 0.1 Baso # (Auto) 0.0 Absolute Nucleated RBC 0.00 Nucleated RBC % 0.0 Sodium 138 Potassium 3.9 Chloride 104 Carbon Dioxide 24 Anion Gap 10.0 BUN 18 Creatinine 1.1 Estimated GFR (MDRD) 69 L Glucose 145 H Calcium 9.3 Total Bilirubin 0.5 AST 19 ALT 27 Alkaline Phosphatase 74 Troponin I High Sens 3.5 Total Protein 7.8 Albumin 4.4 Globulin 3.4 Albumin/Globulin Ratio 1.3 Lipase 33 - Rads (name of study) chest Radiology: Prelim report reviewed (Impression: 1. Central venous and mild interstitial congestion suggesting early CHF. Heart size remains normal.), EMP read indepedently, See rad report PD MEDICAL DECISION MAKING - ED course Complexity details: reviewed old records, reviewed results, re-evaluated patient, considered differential, d/w patient, d/w family, d/w business info consultant (Dr. Augustni university tutor at [facility]. Recommends administration of PO metoprolol 50mg PRN for rapid heart rate and follow up for further evaluation) ED course: 60-year-old male presents to the emergency department with tachycardia and following his electrocardiogram the patient converts. He appeared to be in a supraventricular tachycardia with narrow complex. Departure - Departure Disposition: 01 Home, Self Care Clinical Impression: SVT (supraventricular tachycardia) Condition: Stable Instructions: ED Tachycardia Pat PSVT Follow-Up: CHUCK SUBRAMANIAN MD [Primary Care Provider] - Tim Cruz MD [Physician No Access] - Prescriptions: Metoprolol Tartrate [Lopressor] 50 mg PO ONCE PRN #10 tablet PRN Reason: rapid heart rate Comments: Today it looks like you spontaneously converted from this rapid rate and I have discussed her case with Dr. Augustin and he recommends that we provide you with a dose of metoprolol to use if you develop this rapid heart rate again. You will need further evaluation and likely electrophysiologic studies. Discharge Date/Time: 11/19/20 22:48
[2020-11-19] MEDS ORDERED: METOPROLOL TARTRATE 50 MG TABLET PO STA (22:31)
[2020-11-19 22:35] VITALS: BP 100/67
== END 2020-11-19 22:48 | disposition home or self-care (01) ==
LOC: ED 20:25
DX: I10 Essential (primary) hypertension (principal); I48.91 Unspecified atrial fibrillation; I47.1 Supraventricular tachycardia; F17.200 Nicotine dependence, unspecified, uncomplicated; Z79.82 Long term (current) use of aspirin
CPT/HCPCS: 36415; 71045; 80053; 83690; 84484; 85025; 93005; 99284; A9270

== ENCOUNTER 2020-11-26 00:24 | Emergency (ER) | payer OTHER ==
[2020-11-26 00:54] LABS: BASOPHILS # (AUTO) 0.1 10^3/uL (0.0-0.1); BASOPHILS % (AUTO) 0.5 %; EOSINOPHILS # (AUTO) 0.1 10^3/uL (0.0-0.7); EOSINOPHILS % (AUTO) 1.3 %; HCT - HEMATOCRIT 44.3 % (42.0-52.0); HGB - HEMOGLOBIN 15.6 g/dL (14.0-18.0); LYMPHOCYTES # (AUTO) 3.3 10^3/uL (1.5-3.5); LYMPHOCYTES % (AUTO) 29.8 %; MEAN CORPUSCULAR HEMOGLOBIN 34.1 pg (27.0-31.0); MEAN CORPUSCULAR HGB CONC 35.2 g/dL (32.0-36.0); MEAN CORPUSCULAR VOLUME 96.9 fL (80.0-94.0); MEAN PLATELET VOLUME 9.6 fL (7.4-11.4); MONOCYTES # (AUTO) 0.9 10^3/uL (0.0-1.0); MONOCYTES % (AUTO) 7.9 %; NEUTROPHILS # (AUTO) 6.7 10^3/uL (1.5-6.6); NEUTROPHILS % (AUTO) 60.2 %; PLT - PLATELET COUNT 204 10^3/uL (130-450); RED BLOOD COUNT 4.57 10^6/uL (4.70-6.10); RED CELL DISTRIBUTION WIDTH 12.2 % (12.0-15.0); WHITE BLOOD COUNT 11.1 x10^3/uL (4.8-10.8)
[2020-11-26 01:07] LABS: ALBUMIN 3.9 g/dL (3.2-5.5); ALBUMIN/GLOBULIN RATIO 1.3 (1.0-2.2); BILIRUBIN,TOTAL 0.6 mg/dL (0.2-1.0); CALCIUM 8.7 mg/dL (8.5-10.3); CREATININE 0.8 mg/dL (0.6-1.2); POTASSIUM 3.8 mmol/L (3.5-5.0); TOTAL PROTEIN 6.9 g/dL (6.7-8.2)
--- NOTE | 2020-11-26 02:28 | ED Physician Documentation ---
History of Present Illness - Stated complaint Stated Complaint: IRREGULAR HR - Chief complaint Chief Complaint: Cardiac - History obtained from History obtained from: Patient - Additonal information Additional information: 60-year-old man with history of A. fib not on anticoagulation presents with tachycardia into the 150s and bradycardia to the 30s with lightheadedness associated over the past several hours. Patient denies chest pain, nausea, fever, shortness of breath. +palpitations. sales hunter Dr. Cruz is planning to have him see Dr. Johnson for possible ablation per his report Review of Systems Ten Systems: 10 systems reviewed and negative Constitutional: denies: Fever, Chills Cardiac: reports: Chest pain / pressure Respiratory: denies: Dyspnea Neurologic: reports: Other (lightheadedness) PD PAST MEDICAL HISTORY - Past Medical History Past Medical History: Yes Cardiovascular: Hypertension, Atrial flutter, Atrial fibrillation Respiratory: None Neuro: None Endocrine/Autoimmune: None GI: None : None HEENT: None Psych: None Musculoskeletal: None Derm: None - Past Surgical History Past Surgical History: Yes HEENT: Tonsil/Adenoidectomy - Present Medications Home Medications: Ambulatory Orders Medication Instructions Recorded Confirmed Aspirin 1 - 2 tab QID PRN 06/05/16 11/26/20 Tramadol HCl 50 mg PO Q6H PRN #30 tablet 07/16/16 11/26/20 Diltiazem HCl [Diltiazem 12Hr ER] 120 mg PO DAILY 11/12/20 11/26/20 Metoprolol Tartrate [Lopressor] 50 mg PO ONCE PRN #10 tablet 11/19/20 11/26/20 - Allergies Allergies/Adverse Reactions: Allergies Allergy/AdvReac Type Severity Reaction Status Date / Time No Known Drug Allergies Allergy Verified 11/26/20 00:26 - Social History Does the pt smoke?: Yes Smoking Status: Current every day smoker Does the pt drink ETOH?: Yes Does the pt have substance abuse?: No - Immunizations Immunizations are current?: No - POLST Patient has POLST: No PD ED PE NORMAL - Vitals Vital signs reviewed: Yes - General General: Alert and oriented X 3, No acute distress, Well developed/nourished - HEENT HEENT: Atraumatic, PERRL, EOMI - Neck Neck: Supple, no meningeal sign - Cardiac Cardiac: Other (tachycardic rate, irregular rhythm) - Respiratory Respiratory: No respiratory distress, Clear bilaterally - Abdomen Abdomen: Non tender, Non distended - Derm Derm: Normal color - Extremities Extremities: No deformity - Neuro Neuro: Alert and oriented X 3 - Psych Psych: Normal mood, Normal affect Results - Vitals Vitals: Vital Signs - 24 hr 11/26/20 11/26/20 11/26/20 00:26 00:32 01:02 Temperature 36.5 C 36.5 C Heart Rate 56 L 56 L 73 Respiratory 16 16 16 Rate Blood Pressure 130/83 H 130/83 H 107/79 O2 Saturation 99 99 96 11/26/20 11/26/20 11/26/20 01:30 02:00 02:16 Temperature Heart Rate 72 71 Respiratory 16 14 Rate Blood Pressure 99/62 89/56 L 119/78 O2 Saturation 94 96 11/26/20 11/26/20 11/26/20 02:30 03:00 03:30 Temperature Heart Rate 78 100 74 Respiratory 16 16 15 Rate Blood Pressure 87/62 L 101/72 106/69 O2 Saturation 97 97 97 11/26/20 11/26/20 11/26/20 04:00 04:30 05:00 Temperature Heart Rate 60 62 54 L Respiratory 16 17 15 Rate Blood Pressure 101/56 L 98/61 102/59 L O2 Saturation 96 97 96 11/26/20 05:30 Temperature Heart Rate 71 Respiratory 15 Rate Blood Pressure 92/58 L O2 Saturation 97 Oxygen O2 Source Room air - EKG (time done) 0030 Rhythm: Atrial fibrillation 0543 Rate: Rate (enter#) (55) Rhythm: Other (nsr with bigeminy) - Labs Labs: Laboratory Tests 11/26/20 11/26/20 11/26/20 00:49 00:49 00:49 WBC 11.1 H RBC 4.57 L Hgb 15.6 Hct 44.3 MCV 96.9 H MCH 34.1 H MCHC 35.2 RDW 12.2 Plt Count 204 MPV 9.6 Neut # (Auto) 6.7 H Lymph # (Auto) 3.3 [place] # (Auto) 0.9 Eos # (Auto) 0.1 Baso # (Auto) 0.1 Absolute Nucleated RBC 0.00 Nucleated RBC % 0.0 Sodium 137 Potassium 3.8 Chloride 103 Carbon Dioxide 23 Anion Gap 11.0 BUN 17 Creatinine 0.8 Estimated GFR (MDRD) 99 Glucose 113 H Calcium 8.7 Total Bilirubin 0.6 AST 17 ALT 23 Alkaline Phosphatase 66 Troponin I High Sens 4.4 Total Protein 6.9 Albumin 3.9 Globulin 3.0 Albumin/Globulin Ratio 1.3 Lipase 29 Nasal Adenovirus (PCR) Nasal B. parapertussis DNA (PCR) Nasal Coronavir 229E PCR Nasal Coronavir HKU1 PCR Nasal Coronavir NL63 PCR Nasal Coronavir OC43 PCR Nasal Enterovir/Rhinovir PCR Nasal Influenza B PCR Nasal Influenza A PCR Nasal Parainfluen 1 PCR Nasal Parainfluen 2 PCR Nasal Parainfluen 3 PCR Nasal Parainfluen 4 PCR Nasal RSV (PCR) Nasal B.pertussis DNA PCR Nasal C.pneumoniae (PCR) Abhi Human Metapneumo PCR Nasal M.pneumoniae (PCR) Nasal SARS-CoV-2 (PCR) 11/26/20 11/26/20 02:10 05:20 WBC RBC Hgb Hct MCV MCH MCHC RDW Plt Count MPV Neut # (Auto) Lymph # (Auto) [place] # (Auto) Eos # (Auto) Baso # (Auto) Absolute Nucleated RBC Nucleated RBC % Sodium Potassium Chloride Carbon Dioxide Anion Gap BUN Creatinine Estimated GFR (MDRD) Glucose Calcium Total Bilirubin AST ALT Alkaline Phosphatase Troponin I High Sens 4.9 Total Protein Albumin Globulin Albumin/Globulin Ratio Lipase Nasal Adenovirus (PCR) NOT DETECTED Nasal B. parapertussis DNA (PCR) NOT DETECTED Nasal Coronavir 229E PCR NOT DETECTED Nasal Coronavir HKU1 PCR NOT DETECTED Nasal Coronavir NL63 PCR NOT DETECTED Nasal Coronavir OC43 PCR NOT DETECTED Nasal Enterovir/Rhinovir PCR NOT DETECTED Nasal Influenza B PCR NOT DETECTED Nasal Influenza A PCR NOT DETECTED Nasal Parainfluen 1 PCR NOT DETECTED Nasal Parainfluen 2 PCR NOT DETECTED Nasal Parainfluen 3 PCR NOT DETECTED Nasal Parainfluen 4 PCR NOT DETECTED Nasal RSV (PCR) NOT DETECTED Nasal B.pertussis DNA PCR NOT DETECTED Nasal C.pneumoniae (PCR) NOT DETECTED Abhi Human Metapneumo PCR NOT DETECTED Nasal M.pneumoniae (PCR) NOT DETECTED Nasal SARS-CoV-2 (PCR) NOT DETECTED PD MEDICAL DECISION MAKING - ED course ED course: Patient with multiple episodes of bradycardia with HR in 30s in the ED, feeling lightheaded. d/w Dr. Leong, EP sales hunter who will accept in transfer to [facility] for evaluation of need for ablation vs pacemaker. d/w Dr. Gonzalez, accepting hospitalist. Departure - Departure Disposition: 02 Transfer Acute Care Hosp Clinical Impression: Symptomatic bradycardia, Afib Condition: Stable
[2020-11-26] MEDS ORDERED: SODIUM CHLORIDE 0.9% 1,000 ML IV STA (02:42)
[2020-11-26] MEDS ORDERED: SODIUM CHLORIDE 0.9% 1,000 ML IV SCH (03:00)
[2020-11-26 03:11] LABS: B. PARAPERTUSSIS- RESP PCR PAN NOT DETECTED; B. PERTUSSIS- RESP PCR PANEL NOT DETECTED; C. PNEUMONIAE- RESP PCR PANEL NOT DETECTED; CORONAVIRUS 229E-RESP PCR NOT DETECTED; CORONAVIRUS HKU1-RESP PCR NOT DETECTED; CORONAVIRUS NL63-RESP PCR NOT DETECTED; CORONAVIRUS OC43-RESP PCR NOT DETECTED; HUMAN METAPNEUMOVIRUS NOT DETECTED; INFLUENZA A- RESP PCR PANEL NOT DETECTED; INFLUENZA B - RESP PCR PANEL NOT DETECTED; M. PNEUMONIAE- RESP PCR PANEL NOT DETECTED; PARAINFLUENZA VIRUS 1 NOT DETECTED; PARAINFLUENZA VIRUS 2 NOT DETECTED; PARAINFLUENZA VIRUS 3 NOT DETECTED; PARAINFLUENZA VIRUS 4 NOT DETECTED; RHINOVIRUS/ENTEROVIRUS NOT DETECTED; RSV- RESP PCR PANEL NOT DETECTED; SARS-CoV-2 -RESP PCR PANEL NOT DETECTED
[2020-11-26 06:32] VITALS: BP 115/72
--- NOTE | 2020-11-26 10:43 | XRAY Report ---
PROCEDURE: Chest 1 View X-Ray INDICATIONS: Chest Pain TECHNIQUE: One view of the chest was acquired. COMPARISON: 11/19/2020, 11/12/2020, 10/21/2020. FINDINGS: Surgical changes and devices: None. Lungs and pleura: No pleural effusions or pneumothorax. Lungs are clear. Mediastinum: Mediastinal contours appear normal. Heart size is normal. Bones and chest wall: No suspicious bony lesions. Overlying soft tissues appear unremarkable. IMPRESSION: Normal portable chest. Note: No significant discrepancy from the preliminary report. Reviewed by: Kevin Reese MD on 11/26/2020 9:42 AM FRANKIE Approved by: Kevin Reese MD on 11/26/2020 9:42 AM FRANKIE Station ID: [id number]
== END 2020-11-26 06:33 | disposition short-term general hospital (02) ==
LOC: ED 00:24
DX: I48.91 Unspecified atrial fibrillation (principal); R00.1 Bradycardia, unspecified; I10 Essential (primary) hypertension; F17.200 Nicotine dependence, unspecified, uncomplicated; Z20.822 Contact with and (suspected) exposure to COVID-19
CPT/HCPCS: 0202U; 36415; 71045; 80053; 83690; 84484; 85025; 93005; 99285

== ENCOUNTER 2020-11-26 06:34 | Outpatient (CLI) | payer OTHER | END 2020-11-26 06:35 | disposition short-term general hospital (02) | LOC: EMS 06:34 | PROVIDERS: ATTEND Emergency Medicine | DX: I48.91 Unspecified atrial fibrillation (principal); R00.1 Bradycardia, unspecified; R42 Dizziness and giddiness | CPT/HCPCS: A0425; A0426 ==

== ENCOUNTER 2021-02-16 17:15 | Emergency (ER) | payer OTHER ==
[2021-02-16] MEDS ORDERED: diltiaZEM INJ 5 MG/ML VIAL IVP STA (17:47)
--- NOTE | 2021-02-16 17:50 | ED Physician Documentation ---
History of Present Illness - Stated complaint Stated Complaint: AFIB - Chief complaint Chief Complaint: Cardiac - History obtained from History obtained from: Patient - History of Present Illness Timing: Today Pain level max: 0 Pain level now: 0 - Additonal information Additional information: Patient is a 60-year-old male who has a longstanding history of atrial fibrillation. He states that he noticed his heart beating rapidly today. No chest pain. No shortness of breath. He is on flecainide and diltiazem at home. Nothing makes it better or worse. He states that he did take his medication as usual today. Review of Systems Constitutional: denies: Fever, Chills Nose: denies: Rhinorrhea / runny nose, Congestion Throat: denies: Sore throat Cardiac: reports: Palpitations. denies: Chest pain / pressure Respiratory: denies: Dyspnea, Cough, Wheezing GI: denies: Abdominal Pain, Nausea, Vomiting, Diarrhea Skin: denies: Rash Musculoskeletal: denies: Neck pain, Back pain Neurologic: denies: Headache PD PAST MEDICAL HISTORY - Past Medical History Cardiovascular: Hypertension, Atrial flutter, Atrial fibrillation Respiratory: None Neuro: None Endocrine/Autoimmune: None GI: None : None HEENT: None Psych: None Musculoskeletal: None Derm: None - Past Surgical History Past Surgical History: Yes HEENT: Tonsil/Adenoidectomy - Present Medications Home Medications: Ambulatory Orders Medication Instructions Recorded Confirmed Aspirin 1 - 2 tab QID PRN 06/05/16 11/26/20 Tramadol HCl 50 mg PO Q6H PRN #30 tablet 07/16/16 11/26/20 Diltiazem HCl [Diltiazem 12Hr ER] 120 mg PO DAILY 11/12/20 11/26/20 Metoprolol Tartrate [Lopressor] 50 mg PO ONCE PRN #10 tablet 11/19/20 11/26/20 diltiaZEM CD [Cardizem Cd] 240 mg PO DAILY #30 cap 02/16/21 - Allergies Allergies/Adverse Reactions: Allergies Allergy/AdvReac Type Severity Reaction Status Date / Time No Known Drug Allergies Allergy Verified 11/26/20 00:26 - Social History Does the pt smoke?: Yes Smoking Status: Current every day smoker Does the pt drink ETOH?: Yes Does the pt have substance abuse?: No - Immunizations Immunizations are current?: No - POLST Patient has POLST: No PD ED PE NORMAL - Vitals Vital signs reviewed: Yes - General General: Alert and oriented X 3, No acute distress - HEENT HEENT: Moist mucous membranes - Neck Neck: Supple, no meningeal sign - Cardiac Cardiac: Other (Irregular, tachycardic) - Respiratory Respiratory: No respiratory distress, Clear bilaterally - Abdomen Abdomen: Soft, Non tender, Non distended - Derm Derm: Warm and dry - Extremities Extremities: No edema, No calf tenderness / cord - Neuro Neuro: Alert and oriented X 3 Results - Vitals Vitals: Vital Signs - 24 hr 02/16/21 02/16/21 02/16/21 17:30 17:33 18:12 Temperature 36.4 C L 36.5 C Heart Rate 122 H 100 79 Respiratory 16 18 18 Rate Blood Pressure 115/81 H 105/89 H 118/86 H O2 Saturation 97 98 96 02/16/21 02/16/21 02/16/21 18:30 19:00 19:30 Temperature Heart Rate 77 76 79 Respiratory 16 16 16 Rate Blood Pressure 101/86 H 141/61 H 102/88 H O2 Saturation 96 96 100 Oxygen O2 Source Room air - EKG (time done) 1815 Rate: Rate (enter#) (76) Rhythm: Atrial flutter (4:1) [place]: Normal 1719 Rate: Rate (enter#) (100) Rhythm: Atrial flutter Intervals: Prolonged QT QRS: Normal Ischemia: Non specific changes - Labs Labs: Laboratory Tests 02/16/21 02/16/21 02/16/21 17:56 17:56 17:56 WBC 7.7 RBC 4.74 Hgb 15.9 Hct 45.1 MCV 95.1 H MCH 33.5 H MCHC 35.3 RDW 12.4 Plt Count 207 MPV 10.0 Neut # (Auto) 3.8 Lymph # (Auto) 3.0 [place] # (Auto) 0.8 Eos # (Auto) 0.1 Baso # (Auto) 0.1 Absolute Nucleated RBC 0.00 Nucleated RBC % 0.0 Sodium 136 Potassium 3.8 Chloride 104 Carbon Dioxide 23 Anion Gap 9.0 BUN 14 Creatinine 0.7 Estimated GFR (MDRD) 116 Glucose 122 H Calcium 9.0 Phosphorus 3.1 Magnesium 2.0 Total Bilirubin 0.9 AST 15 ALT 22 Alkaline Phosphatase 56 Troponin I High Sens 6.2 Total Protein 7.1 Albumin 4.2 Globulin 2.9 Albumin/Globulin Ratio 1.4 Lipase 24 - Rads (name of study) cxr Radiology: Final report received, EMP read contemporaneously, See rad report (1. Newly placed left-sided dual-lead pacemaker. 2. Normal heart size without radiographic evidence of acute CHF. ) PD MEDICAL DECISION MAKING - ED course Complexity details: reviewed results, re-evaluated patient, considered differential (No ST elevation [place], no aortic dissection, no PE, no tension pneumothorax, no aortic aneurysm), d/w patient ED course: Patient presents to the emergency department with atrial flutter with rapid ventricular response. Given diltiazem and became rate controlled quickly. His blood pressure remained stable. Patient continues to be asymptomatic. No chest pain or shortness of breath. He is not currently anticoagulated. Appears to likely have paroxysmal atrial fibrillation/flutter. Attempted to contact his continuous process coffee roaster four times. No callback was received. The patient is currently hemodynamically stable. Will increase his diltiazem from 120 mg daily to 240 mg daily. Recommend that he contact his continuous process coffee roaster in the morning to discuss if he should change his flecainide dosing as well as his QT is prolonged here. Patient counseled regarding signs and symptoms for which I believe and urgent re-evaluation would be necessary. Patient with good understanding of and agreement to plan and is comfortable going home at this time This document was made in part using voice recognition software. While efforts are made to proofread this document, sound alike and grammatical errors may occur. Departure - Departure Disposition: 01 Home, Self Care Clinical Impression: Atrial flutter Qualifiers: Atrial flutter type: unspecified Qualified Code(s): I48.92 - Unspecified atrial flutter Condition: Good Instructions: ED Paroxysmal Atrial Flutter Follow-Up: Yeyo Johnson MD [Physician No Access] - Tomorrow Prescriptions: diltiaZEM CD [Cardizem Cd] 240 mg PO DAILY #30 cap Comments: Your prescription was sent to [facility] in [place]. We will increase your Cardizem to [address] Gruber's office tomorrow and see if they would like to adjust your medications any further. They may also want to adjust your flecainide as your QT interval was 500 tonight. We did attempt to page the continuous process coffee roaster several times tonight with no call back. Therefore it is important that you talk to them tomorrow. Return if you worsen. You are in a rhythm called atrial flutter tonight. It is unclear if you have had atrial flutter in the past but it is common with atrial fibrillation. Discharge Date/Time: 02/16/21 19:54
[2021-02-16 18:31] LABS: BASOPHILS # (AUTO) 0.1 10^3/uL (0.0-0.1); BASOPHILS % (AUTO) 0.6 %; EOSINOPHILS # (AUTO) 0.1 10^3/uL (0.0-0.7); EOSINOPHILS % (AUTO) 0.9 %; HCT - HEMATOCRIT 45.1 % (42.0-52.0); HGB - HEMOGLOBIN 15.9 g/dL (14.0-18.0); LYMPHOCYTES % (AUTO) 38.9 %; MEAN CORPUSCULAR HEMOGLOBIN 33.5 pg (27.0-31.0); MEAN CORPUSCULAR HGB CONC 35.3 g/dL (32.0-36.0); MEAN CORPUSCULAR VOLUME 95.1 fL (80.0-94.0); MONOCYTES # (AUTO) 0.8 10^3/uL (0.0-1.0); MONOCYTES % (AUTO) 10.6 %; NEUTROPHILS # (AUTO) 3.8 10^3/uL (1.5-6.6); NEUTROPHILS % (AUTO) 48.9 %; PLT - PLATELET COUNT 207 10^3/uL (130-450); RED BLOOD COUNT 4.74 10^6/uL (4.70-6.10); RED CELL DISTRIBUTION WIDTH 12.4 % (12.0-15.0); WHITE BLOOD COUNT 7.7 x10^3/uL (4.8-10.8)
[2021-02-16 18:46] LABS: ALBUMIN 4.2 g/dL (3.2-5.5); ALBUMIN/GLOBULIN RATIO 1.4 (1.0-2.2); BILIRUBIN,TOTAL 0.9 mg/dL (0.2-1.0); CREATININE 0.7 mg/dL (0.6-1.2); PHOSPHORUS 3.1 mg/dL (2.5-4.6); POTASSIUM 3.8 mmol/L (3.5-5.0); TOTAL PROTEIN 7.1 g/dL (6.7-8.2)
[2021-02-16 19:33] VITALS: BP 102/88
--- NOTE | 2021-02-16 19:51 | XRAY Report ---
PROCEDURE: Chest 1 View X-Ray INDICATIONS: Chest Pain TECHNIQUE: One view of the chest was acquired. COMPARISON: 11/26/2020 FINDINGS: Surgical changes and devices: Left-sided dual-lead pacemaker is now in place.. Lungs and pleura: No pleural effusions or pneumothorax. Lungs are clear. Mediastinum: Mediastinal contour is stable. Heart size is normal. Bones and chest wall: No suspicious bony lesions. Overlying soft tissues appear unremarkable. IMPRESSION: 1. Newly placed left-sided dual-lead pacemaker. 2. Normal heart size without radiographic evidence of acute CHF. Reviewed by: Reyna Duron MD on 02/16/2021 7:49 PM PDT Approved by: Reyna Duron MD on 02/16/2021 7:49 PM PDT Station ID: [id number]
== END 2021-02-16 19:54 | disposition home or self-care (01) ==
LOC: ED 17:15
DX: I48.92 Unspecified atrial flutter (principal); I45.81 Long QT syndrome; I44.30 Unspecified atrioventricular block; Z95.0 Presence of cardiac pacemaker; I10 Essential (primary) hypertension; F17.200 Nicotine dependence, unspecified, uncomplicated; Z79.82 Long term (current) use of aspirin
CPT/HCPCS: 36415; 80053; 83690; 83735; 84100; 84484; 85025; 93005; 96374; 99284

== ENCOUNTER 2022-08-30 16:30 | Emergency (ER) | payer OTHER ==
[2022-08-30] MEDS ORDERED: ONDANSETRON 4 MG/2 ML VIAL IVP STA ×2 (16:33→18:50)
[2022-08-30] MEDS ORDERED: HYDROmorphone 1 MG/ML CARPUJECT IVP STA ×2 (16:33→18:50)
[2022-08-30] MEDS ORDERED: SODIUM CHLORIDE 0.9% 1,000 ML IV STA (16:33)
--- NOTE | 2022-08-30 16:53 | ED Physician Documentation ---
History of Present Illness - Stated complaint Stated Complaint: ABD PX - Chief complaint Chief Complaint: Abd Pain - Additonal information Additional information: 62-year-old male was referred to the emergency department by local walk-in [facility] for evaluation of periumbilical pain. Patient reports about 2 weeks ago he began noticing some pain in his umbilical region it got worse over period of week but then went away for several days. However it returned again about 4 to 5 days ago. He has had no fevers. He does report that over the last several years he has begun to have some constipation and occasionally bloody stools. Last had a colonoscopy more than 10 years ago. Patient had an inguinal hernia repair when he was a child. Patient does have a history of A-fib. He underwent an ablation at the end of 2020. He does take flecainide diltiazem and a 325 aspirin daily. Not anticoagulated otherwise. Review of Systems Constitutional: denies: Fever, Chills Cardiac: reports: Reviewed and negative Respiratory: reports: Reviewed and negative GI: reports: Diarrhea, Bloody / black stool. denies: Nausea, Vomiting : reports: Reviewed and negative Skin: reports: Reviewed and negative PD PAST MEDICAL HISTORY - Past Medical History Cardiovascular: Hypertension, Atrial flutter, Atrial fibrillation Respiratory: None Neuro: None Endocrine/Autoimmune: None GI: None : None HEENT: None Psych: None Musculoskeletal: None Derm: None - Past Surgical History Past Surgical History: Yes HEENT: Tonsil/Adenoidectomy - Present Medications Home Medications: Ambulatory Orders Medication Instructions Recorded Confirmed Aspirin 1 - 2 tab QID PRN 06/05/16 11/26/20 Tramadol HCl 50 mg PO Q6H PRN #30 tablet 07/16/16 11/26/20 Diltiazem HCl [Diltiazem 12Hr ER] 120 mg PO DAILY 11/12/20 11/26/20 Metoprolol Tartrate [Lopressor] 50 mg PO ONCE PRN #10 tablet 11/19/20 11/26/20 diltiaZEM CD [Cardizem Cd] 240 mg PO DAILY #30 cap 02/16/21 oxyCODONE [Roxicodone] 5 mg PO BID #10 tablet 08/30/22 polyethylene glycoL 3350(BULK) 17 gm PO DAILY PRN #1 each 08/30/22 [Miralax] - Allergies Allergies/Adverse Reactions: Allergies Allergy/AdvReac Type Severity Reaction Status Date / Time No Known Drug Allergies Allergy Verified 08/30/22 16:37 - Social History Does the pt smoke?: Yes Smoking Status: Current every day smoker Does the pt drink ETOH?: Yes Does the pt have substance abuse?: No - Immunizations Immunizations are current?: No - POLST Patient has POLST: No PD ED PE NORMAL - General General: Alert and oriented X 3, No acute distress, Well developed/nourished - HEENT HEENT: Atraumatic, Moist mucous membranes - Cardiac Cardiac: RRR, No murmur - Respiratory Respiratory: No respiratory distress, Clear bilaterally - Abdomen Abdomen: Normal bowel sounds, Soft. No: Non tender (Mildly distended belly. Peritoneal guarding and rebound in the periumbilical region.) - Back Back: No CVA TTP - Derm Derm: Normal color, Warm and dry - Extremities Extremities: No deformity, No tenderness to palpate, Normal ROM s pain - Neuro Neuro: Alert and oriented X 3, erp project manager 2-12 intact Eye Opening: Spontaneous Motor: Obeys Commands Verbal: Oriented GCS Score: 15 Results - Vitals Vitals: Vital Signs - 24 hr 08/30/22 08/30/22 08/30/22 16:34 17:01 18:04 Temperature 36.6 C Heart Rate 63 70 84 Respiratory 16 20 16 Rate Blood Pressure 144/92 H 133/92 H 124/67 O2 Saturation 98 99 98 Oxygen O2 Source Room air - EKG (time done) 1703 EKG releavant findings:: EKG personally interpreted by author of this note. Relevant findings are: Rate: Rate (enter#) (62) Rhythm: NSR, Paced [place]: Anterior hemiblock Intervals: Normal [place]. No: Prolonged QT Compare to prior EKG: Old EKG unavailable Computer interpretation: Agree with computer - Labs Labs: Laboratory Tests 08/30/22 08/30/22 08/30/22 16:46 17:12 17:21 WBC 7.4 RBC 4.86 Hgb 15.5 Hct 44.8 MCV 92.2 MCH 31.9 H MCHC 34.6 RDW 12.7 Plt Count 233 MPV 9.9 Neut # (Auto) 4.3 Lymph # (Auto) 2.3 [place] # (Auto) 0.7 Eos # (Auto) 0.1 Baso # (Auto) 0.1 Absolute Nucleated RBC 0.00 Nucleated RBC % 0.0 Sodium 137 Potassium 3.9 Chloride 105 Carbon Dioxide 23 Anion Gap 9.0 BUN 16 Creatinine 0.8 Estimated GFR (MDRD) 99 Glucose 104 H Calcium 8.8 Total Bilirubin 0.6 AST 20 ALT 28 Alkaline Phosphatase 51 Total Protein 7.5 Albumin 4.2 Globulin 3.3 Albumin/Globulin Ratio 1.3 Lipase 30 Urine Color YELLOW Urine Clarity CLEAR Urine pH 6.0 Ur Specific [place] 1.020 Urine Protein NEGATIVE Urine Glucose (UA) NEGATIVE Urine Ketones NEGATIVE Urine Occult Blood NEGATIVE Urine Nitrite NEGATIVE Urine Bilirubin NEGATIVE Urine Urobilinogen 0.2 (NORMAL) Ur Leukocyte Esterase NEGATIVE Ur Microscopic Review NOT INDICATED Urine Culture Comments NOT INDICATED - Rads (name of study) CT abd Relevant Findings:: Final report received (Small fat-containing periumbilical hernia. Fat stranding is present within the hernia sac and at the neck of the hernia suggesting inflammation or possible strangulation. Infrarenal abdominal aortic aneurysm measuring up to 3.2 cm. Ectasia of the left common iliac artery also present) PD Medical Decision Making - ED course Complexity details: reviewed results, re-evaluated patient, considered differential, d/w patient, d/w organizational consultant ([place]) ED course: 62-year-old male presents emergency department for evaluation of periumbilical pain that began about 2 weeks ago. It is waxed and waned in its course. Acutely worsening over the last 3 to 4 days. He does have quite a tender umbilicus region without obvious hernia swelling or erythema. CBC and electrolytes were completed today. Per my interpretation no acute worrisome findings. Specifically no leukocytosis. No worrisome electrolyte abnormalities. He presents here afebrile. He is normal tensive without tachycardia. Subsequent CT of the abdomen was completed with contrast. It does show a small fat-containing periumbilical hernia with fat stranding within the hernia sac and at the neck of the hernia suggesting inflammation or possible strangulation. I did discuss this CT finding on the phone with on-call surgeon Dr. King. She reports that this is the type of hernia that requires urgent though not emergent repair. Ideally surgery would occur within the next week. There was also an incidental finding made of a 3.2 cm infrarenal abdominal aneurysm. I did spend some time at the bedside with the patient and his daughter. I discussed both the findings of the umbilical hernia which appears likely strangulated and the abdominal aneurysm. They will follow-up closely with his primary care provider tomorrow in order to obtain the urgent referral to surgery. We did discuss that if the symptoms should worsen and include worsening pain, fevers, uncontrolled vomiting, black or bloody stools he is to return to the emergency department immediately. He is also advised to follow closely with vascular surgery for repeat evaluation and imaging of this aneurysm to ensure stable size. I am writing a limited prescription of hydrocodone for analgesia. I am prescribing a short course of short-acting opioid pain medication for this patient. I have reviewed the patients GLASS BLOWER HELPER and no concerning findings were noted. I have discussed that the opioids are for short term therapy only, and will not be refilled from the ED. Departure - Departure Disposition: 01 Home, Self Care Clinical Impression: Strangulated umbilical hernia, Abdominal aortic aneurysm (AAA) 3.0 cm to 5.5 cm in diameter in male Condition: Stable Record reviewed to determine appropriate education?: Yes Instructions: Hernia How Develops, ED Aneurysm Abdominal Aortic Stable Prescriptions: polyethylene glycoL 3350(BULK) [Miralax] 17 gm PO DAILY PRN #1 each PRN Reason: Constipation oxyCODONE [Roxicodone] 5 mg PO BID #10 tablet Comments: Demetris you came to the emergency department because you have been having some pain in your bellybutton region. A CT completed of your abdomen today shows a small fat-containing umbilical hernia. This fat is strangulated which means that it is trapped within the hernia and cannot move out. This type of hernia typically requires urgent surgical repair. This means that ideally you would have an operation on this within the next week. Please speak with your primary provider tomorrow to obtain the surgical referral. If over the course of the weekend you find that your symptoms are worsening, you develop fevers, have uncontrolled vomiting, any black or bloody stools you do need to return to the emergency department immediately. Your primary care provider may be able to make a referral to our surgical clinic. They can be reached directly by calling [phone]. [address] of the abdomen also showed an infrarenal abdominal aortic aneurysm measuring about 3.2 cm. This is an incidental finding. Ideally you would have follow-up with a vascular surgeon for this in 3 to 6 months. Repeat imaging with a CAT scan or ultrasound may be indicated. I am writing a prescription for limited amount of hydrocodone for pain control. This is constipating. I recommend that you begin taking MiraLAX with it. Until you are seen by surgery I do not recommend working. No heavy lifting pushing or pulling. You should make care to avoid working outside or avoid any activities in which incidental trauma to the abdomen could occur. I am prescribing a short course of narcotic pain medication for you. These are potentially dangerous and addictive medications that should be used carefully. These medications may constipate you. Take an gwnx-wyv-lohlshl stool softener (docusate) twice daily with plenty of water while taking these medications. If you go 24 hours without a bowel movement, take [id number] miralax, per p nicole instructions. Do not drink or drive while taking these medications. If you received narcotic or sedating medications while in the emergency department, do not drive for 24 hours. Store this medication in a safe, secure place and out of reach of children. It is a violation of federal law to give or sell this medication to another person or to use in a manner other than prescribed. The ED will not refill narcotic prescriptions, including prescriptions lost or stolen. To dispose of unwanted medications: 1. [facility] at [address] in [place] has a medication drop box. They accept prescription medications (in pill form) Saturday through Saturday 9:00 a.m. to 5:00 p.m. 2. The [facility] [employer] accepts prescription medications (in pill form only) for disposal year round. Call for more information. 3. Contact the [facility] for the next [facility] sponsored prescription drug collection event. , [phone], or [phone]; Note that many narcotic pain relievers also contain Tylenol/acetaminophen. Please ensure that your total dose of acetaminophen from all sources does not exceed 3 g (3000 mg) per day.
[2022-08-30 16:56] LABS: BASOPHILS # (AUTO) 0.1 10^3/uL (0.0-0.1); BASOPHILS % (AUTO) 0.8 %; EOSINOPHILS # (AUTO) 0.1 10^3/uL (0.0-0.7); EOSINOPHILS % (AUTO) 0.8 %; HCT - HEMATOCRIT 44.8 % (42.0-52.0); HGB - HEMOGLOBIN 15.5 g/dL (14.0-18.0); LYMPHOCYTES # (AUTO) 2.3 10^3/uL (1.5-3.5); LYMPHOCYTES % (AUTO) 30.4 %; MEAN CORPUSCULAR HEMOGLOBIN 31.9 pg (27.0-31.0); MEAN CORPUSCULAR HGB CONC 34.6 g/dL (32.0-36.0); MEAN CORPUSCULAR VOLUME 92.2 fL (80.0-94.0); MEAN PLATELET VOLUME 9.9 fL (7.4-11.4); MONOCYTES # (AUTO) 0.7 10^3/uL (0.0-1.0); MONOCYTES % (AUTO) 9.7 %; NEUTROPHILS # (AUTO) 4.3 10^3/uL (1.5-6.6); PLT - PLATELET COUNT 233 10^3/uL (130-450); RED BLOOD COUNT 4.86 10^6/uL (4.70-6.10); RED CELL DISTRIBUTION WIDTH 12.7 % (12.0-15.0); WHITE BLOOD COUNT 7.4 x10^3/uL (4.8-10.8)
--- OUTSIDE RECORDS SUMMARY | 2022-08-30 17:07 | EXTERNAL MEDICAL SUMMARY RPT | Continuity of Care Document ---
:1960 Author Organization [facility] Address [address] [place] [address] Phone Care Team Providers Name Role Phone Unavailable Unavailable Unavailable [place] Patient Registrar, Es Unavailable Unavailable Allergies No information. Encounters No information. Functional Status No information. Immunizations No information. Medications date description facility 2022-08-30 00:00 flecainide All 2022-08-30 00:00 aspirin All 2022-08-30 00:00 aspirin All 2022-08-30 00:00 flecainide All 2022-08-30 00:00 diltiazem hcl All 2022-08-30 00:00 flecainide All 2022-08-30 00:00 diltiazem hcl All 2022-08-30 00:00 aspirin All 2022-08-30 00:00 aspirin All 2022-08-30 00:00 diltiazem hcl All 2022-08-30 00:00 diltiazem hcl All 2022-08-30 00:00 flecainide All Problems date description facility 2022-08-30 00:00 Abdominal pain, unspecified site All 2022-08-30 00:00 Umbilical pain All 2022-08-30 00:00 Periumbilical pain All Procedures date description facility 2022-08-30 00:00 Visit Code Hold All Results/Labs No information. Social History date description facility 2022-08-30 00:00 Unknown if ever smoked All Vital Signs date measurement value units 2022-08-30 00:00 BMI 30.65 kg/m2 2022-08-30 00:00 BP_diastolic 96 mmHg 2022-08-30 00:00 BP_systolic 166 mmHg 2022-08-30 00:00 heart_rate 84 /min 2022-08-30 00:00 height_metric 175.26 cm 2022-08-30 00:00 height_standard 69 in 2022-08-30 00:00 respiration_rate 18 /min 2022-08-30 00:00 temperature_metric 36.78 C 2022-08-30 00:00 temperature_standard 98.2 F 2022-08-30 00:00 weight_metric 93.8 kg 2022-08-30 00:00 weight_standard 206.8 lb
[2022-08-30 17:30] LABS: ALBUMIN 4.2 g/dL (3.2-5.5); ALBUMIN/GLOBULIN RATIO 1.3 (1.0-2.2); BILIRUBIN,TOTAL 0.6 mg/dL (0.2-1.0); CALCIUM 8.8 mg/dL (8.5-10.3); CREATININE 0.8 mg/dL (0.6-1.2); POTASSIUM 3.9 mmol/L (3.5-5.0); TOTAL PROTEIN 7.5 g/dL (6.7-8.2)
[2022-08-30] MEDS ORDERED: iohexoL-300 100 ML VIAL ONE (17:40)
[2022-08-30] MEDS ORDERED: iohexoL-300 100 ML VIAL IVP ONE (18:06)
[2022-08-30 18:15] LABS: BILIRUBIN,URINE NEGATIVE (NEGATIVE); GLUCOSE, URINE (UA) NEGATIVE (NEGATIVE); KETONES,URINE (UA) NEGATIVE (NEGATIVE); LEUKOCYTE ESTERASE, URINE NEGATIVE (NEGATIVE); NITRITE,URINE NEGATIVE (NEGATIVE); OCCULT BLOOD,URINE NEGATIVE (NEGATIVE); PROTEIN,URINE NEGATIVE (NEGATIVE); UROBILINOGEN,URINE 0.2 (NORMAL) E.U./dL (NORMAL)
[2022-08-30 18:21] LABS: CLARITY,URINE CLEAR (CLEAR)
--- NOTE | 2022-08-30 18:41 | CT Report ---
PROCEDURE: ABDOMEN/PELVIS W INDICATIONS: severe periumbilical pain CONTRAST: 100mL Omnipaque 300 TECHNIQUE: After the administration of intravenous contrast, 5 mm thick sections acquired from the diaphragms to the symphysis. 5 mm thick coronal and sagittal reformats were acquired. For radiation dose reducti on, the following was used: automated exposure control, adjustment of mA and/or kV according to coco ent size. COMPARISON: CT KUB 07/16/2016 FINDINGS: Visualized lung bases: No pleural effusion. A few small pulmonary nodules are present at the imaged l gonsalo bases as on the 2017 comparison exam. Liver and biliary tree: No suspect focal hepatic lesion. No biliary ductal dilation. Gallbladder: No radiopaque cholelithiasis. Spleen: Unremarkable. Pancreas: Unremarkable. Adrenal glands: Unremarkable. Kidneys and ureters: No hydronephrosis. Gastrointestinal tract: No bowel obstruction. No evidence of acute appendicitis. Peritoneal cavity: No free air or substantial free fluid. Bladder: Unremarkable. Pelvic organs: Unremarkable CT appearance. Vasculature: Infrarenal abdominal aortic aneurysm measuring up to 3.2 cm. Ectasia of the left common iliac artery, 2.1 cm. Lymph nodes: No highly suspicious lymph nodes visualized. Abdominal wall: Small fat-containing periumbilical hernia, neck of the hernia measures approximately 8 mm measured in the sagittal plane. Fat stranding is present within the hernia sac and at the neck. Musculoskeletal: Degenerative change of the spine. Bilateral L5-S1 pars defects IMPRESSION: 1. Small fat-containing periumbilical hernia. Fat stranding is present within the hernia sac and at t he neck of the hernia suggestive of inflammation or possible strangulation. 2. Infrarenal abdominal aortic aneurysm measuring up to 3.2 cm. Ectasia of the left common iliac giancarlo ry also present. Reviewed by: Andrew Cardoza MD on 08/30/2022 6:40 PM PDT Approved by: Andrew Cardoza MD on 08/30/2022 6:40 PM PDT Station ID: [id number]
[2022-08-30 19:27] VITALS: BP 148/96
== END 2022-08-30 19:27 | disposition home or self-care (01) ==
LOC: ED 16:30
DX: K42.0 Umbilical hernia with obstruction, without gangrene (principal); I71.40 Abdominal aortic aneurysm, without rupture, unspecified; I10 Essential (primary) hypertension; I48.91 Unspecified atrial fibrillation; Z79.82 Long term (current) use of aspirin; F17.200 Nicotine dependence, unspecified, uncomplicated
CPT/HCPCS: 36415; 74177; 80053; 81003; 83690; 85025; 93005; 96374; 96375; 99284; 99285; J1170; Q9967; 81001; 87086

== ENCOUNTER 2022-09-07 11:19 | Day surgery (SDC) | payer OTHER ==
[2022-09-07] MEDS ORDERED: CEFAZOLIN 2G/50ML 0.9% NS 2 GM/50 ML BAG IV ONE (11:32)
[2022-09-07] MEDS ORDERED: LACTATED RINGERS 1,000 ML IV ONE ×2 (11:33→14:04)
[2022-09-07] MEDS ORDERED: BUPIVACAINE 0.25% PF 30 ML VIAL ONE (11:38)
--- NOTE | 2022-09-07 12:08 | ANESTHESIA ---
Pre-Anesthesia VS, & Labs - Diagnosis umbilical hernia - Procedure open umbilical hernia repair with mesh Vital Signs: Temp Pulse Resp BP Pulse Ox O2 Flow Rate 36.6 C 70 18 122/89 H 97 09/07/22 11:41 09/07/22 11:41 09/07/22 11:41 09/07/22 11:41 09/07/22 11:41 Height: 5 ft 8 in Weight (kg): 87.9 kg Body Mass Index: 29.5 BMI Classification: Overweight - NPO >8 hours Home Medications and Allergies Home Medications: Ambulatory Orders Flecainide [Tambocar] 150 mg PO Q12H 09/07/22 Aspirin 1 tab PO DAILY 06/05/16 Diltiazem HCl [Diltiazem 12Hr ER] 120 mg PO DAILY 11/12/20 Flecainide [Tambocar] 150 mg PO Q12H 09/07/22 Allergies/Adverse Reactions: Allergies Allergy/AdvReac Type Severity Reaction Status Date / Time No Known Drug Allergies Allergy Verified 08/30/22 16:37 Anes History & Medical History - Anesthetic History Anesthesia Complications: reports: No previous complications - Medical History Cardiovascular: reports: Hypertension, Atrial flutter, Atrial fibrillation, Other (pacemaker) Pulmonary: reports: Sleep apnea, CPAP use Gastrointestinal: reports: None Urinary: reports: None Neuro: reports: None Musculoskeletal: reports: None Endocrine/Autoimmune: reports: None Blood Disorders: reports: None Skin: reports: None Smoking Status: Former smoker (quit 2 years ago) Psychosocial: reports: No issues indicated History of Cancer?: No - Surgical History Eyes Ears Nose Throat (EENT): reports: Tonsil/Adenoidectomy Cardiothoracic: reports: Pacemaker Exam General: Alert, Oriented x3, Cooperative, No acute distress Dental: WNL Mouth Openin Fingerbreadth Neck Mobility: Normal Mallampati classification: II Thyromental Distance: 4-6 cm Mental/Cognitive Status: Alert/Oriented X3, Normal for patient Plan Anesthesia Type: General Consent for Procedure(s) Verified and Reviewed: Yes Code Status: Attempt Resuscitation ASA classification: 3-Severe systemic disease Is this case an emergency?: No
[2022-09-07] MEDS ORDERED: ROCURONIUM 50 MG/5 ML VIAL ONE (12:21)
[2022-09-07] MEDS ORDERED: MIDAZOLAM 2 MG/2 ML VIAL ONE (12:21)
[2022-09-07] MEDS ORDERED: PROPOFOL 200 MG/20 ML VIAL IVP ONE (12:21)
[2022-09-07] MEDS ORDERED: fentaNYL 100 MCG/2 ML VIAL ONE (12:21)
[2022-09-07] MEDS ORDERED: ONDANSETRON 4 MG/2 ML VIAL ONE (13:10)
[2022-09-07] MEDS ORDERED: DEXAMETHASONE 4 MG/ML VIAL ONE (13:10)
[2022-09-07] MEDS ORDERED: BUPIVACAINE 0.25% PF 30 ML VIAL SUBQ ONE (13:10)
[2022-09-07] MEDS ORDERED: SUGAMMADEX 200 MG/2 ML VIAL IVP ONE (13:47)
[2022-09-07] MEDS ORDERED: HYDROmorphone 1 MG/ML CARPUJECT ONE (13:54)
[2022-09-07] MEDS ORDERED: HYDROmorphone 0.5 MG/0.5 ML SYRINGE IVP PRN ×2 (14:04→14:09)
[2022-09-07] MEDS ORDERED: HYDROcod/ACETAM 5/325 MG TABLET PO PRN (14:04)
[2022-09-07] MEDS ORDERED: fentaNYL 100 MCG/2 ML VIAL IVP PRN (14:09)
[2022-09-07] MEDS ORDERED: MORPHINE 2 MG/ML CARPUJECT IVP PRN (14:09)
[2022-09-07] MEDS ORDERED: ONDANSETRON 4 MG/2 ML VIAL IVP PRN (14:09)
[2022-09-07] MEDS ORDERED: ATROPINE ABBOJECT 1 MG/10 ML SYRINGE IVP PRN (14:09)
[2022-09-07] MEDS ORDERED: NALOXONE 0.4 MG/ML VIAL IVP PRN (14:09)
--- NOTE | 2022-09-07 14:10 | OPERATIVE REPORT ---
Operative Report - General Procedure Date: 09/07/22 Planned Procedure: open umbilical hernia repair with mesh Pre-Op Diagnosis: umbilical hernia and large diastasis Procedure Performed: open umbilical hernia repair with mesh Post Op Diagnosis: same - Procedure Note Primary Surgeon: odalis calvo Anesthesia Technique: General ET tube, Local Pathology: none Estimated Blood Loss (mL): 2 Drain/Tube Type: Other (none) Indications: painful hernia bulge Findings: 2.5 cm hernia large diastasis 1.5 to 2 x 4 inch polypropylene mesh Complications: none - Other Other Information/Narrative: The patient was properly identified brought to the operating room and placed in supine position. Sequential compression devices were placed. General anesthesia was induced. The patient was prepped and draped in a sterile fashion and given preoperative antibiotics. Local anesthetic was given throughout the procedure. An supraumbilical incision was made and extended left lateral of the umbilicus. Dissection proceeded sharply. Subcutaneous tissue was mobilized away from the fascial defect by 2 to 3 cm in all directions. Umbilical skin was sharply excised away from the hernia sac or peritoneum. The peritoneum was then carefully released from the fascial defect edge with cutting current cautery. A preperitoneal space was developed for mesh placement. Polypropylene mesh was cut to size approximately 1.5 to 2 inch x 4 inches and placed preperitoneal. The mesh was secured with 9 interrupted 0 Ethibond sutures. Fascia was closed over the mesh with additional interrupted 0 Ethibond the mesh lay in good position without tension. Subcutaneous tissue was reapproximated with interrupted 2-0 Vicryl suture. Umbilical skin was tacked back down to fascia with interrupted 2-0 Vicryl suture. Buried interrupted subdermal 3-0 Vicryl sutures were then placed. Skin was closed with a running 4-0 Monocryl subcuticular suture. Dressing was applied. Patient tolerated the procedure the procedure well was awakened and brought to recovery in good condition.
[2022-09-07] MEDS ORDERED: HYDROcod/ACETAM 5/325 MG TABLET ONE (14:59)
[2022-09-07] MEDS ORDERED: LACTATED RINGERS 1,000 ML IV SCH (15:00)
[2022-09-07] MEDS ORDERED: HYDROmorphone 0.5 MG/0.5 ML SYRINGE ONE (15:00)
[2022-09-07 16:27] VITALS: BP 147/82
--- NOTE | 2022-09-07 22:06 | ANESTHESIA POST OP EVALUATION ---
Anesthesia Post Eval - Post Anesthesia Eval Vitals: Last Vital Signs Temp 36.6 C 09/07/22 14:31 Pulse 66 09/07/22 16:27 Resp 16 09/07/22 16:27 BP 147/82 H 09/07/22 16:27 Pulse Ox 98 09/07/22 16:27 O2 Flow Rate CV Function Including HR & BP: Stable Pain Control: Satisfactory Nausea & Vomiting: Negative Mental Status: Baseline Respiratory Status: Airway Patent Hydration Status: Satisfactory Anesthesia Complications: None
== END 2022-09-07 11:20 | disposition home or self-care (01) ==
LOC: SDS 11:19
PROVIDERS: ATTEND Surgery
DX: K42.9 Umbilical hernia without obstruction or gangrene (principal); I10 Essential (primary) hypertension; Z95.0 Presence of cardiac pacemaker; Z87.891 Personal history of nicotine dependence
CPT/HCPCS: 49591; A9270; C1781; J0690; J1170; J7120